=== PATIENT | male | born 1970 | race Two or more races ===

== ENCOUNTER 2025-03-15 06:53 | Inpatient (IN) ==
--- NOTE | 2025-03-15 07:00 | Emergency Department Note ---
History of Present Illness General Chief complaint: Infection Stated complaint: RT TOE PAIN, DIABETES Time Seen by Provider: 03/15/25 06:58 History of Present Illness Maximum Pain Intensity: 10 This is a 54-year-old male who presents to the emergency department via private vehicle with complaints of "right toe pain, diabetes". The patient notes that 2 days ago he noticed that the right foot, middle toe was turning black. He notes he is diabetic, on metformin. He notes the area is swollen. No increased warmth. No fevers. Current pain 10/10. Other than diabetes, patient denies any other pertinent past medical history, surgeries or allergies. The patient denies any trauma or injury. The patient denies any fevers, chills, nausea or vomiting. No history of similar. Patient denies any current antibiotic use. Home Medications Medication Instructions Recorded Confirmed Type metformin 1,000 mg tablet 1,000 mg PO BIDM 03/15/25 03/15/25 History Allergies Allergy/AdvReac Type Severity Reaction Status Date / Time No Known Allergies Allergy Verified 03/15/25 12:56 Past Med/Surg History Problem List (Updated 03/15/25 @ 15:42 by Luis Hopkins PA-C) Cellulitis of right foot (Acute) Type 2 diabetes mellitus Diabetic ulcer of toe of right foot (Acute) Sepsis (Acute) Family History Other Diabetes Social History (Updated 03/15/25 @ 09:33 by SUKI Shipman) Smoking Status: Never smoker Second Hand Exposure: No; Do You Dip or Chew Tobacco: No; Tobacco Cessation Education Requested by Patient: No Hx Alcohol Use: Yes Alcohol type: beer Alcohol Intake Frequency: 4 or More x per/Week Hx Substance Use: No Preferred Language: Estonian Communication Ability: Effective Highway Technician Required: No Beliefs That Will Affect Care: None Current Living Situation: Alone Current Living Situation Comment: From [facility] but renting house in [place] while [place]olann here Other Information That Helps Us Care for You: No Feels Safe at Home: Yes and No Is there a partner from a previous relationship who is making you feel unsafe now?: No Any Concerns about Your Family Situation: No Would You Like to Speak to Someone About Your Situation: No Safety Concerns: Feels Safe At This Time Assistive Devices: None Review of Systems A total of 10 systems reviewed and were otherwise negative Physical Exam Vital Signs Vital Signs - 24 hr 03/15/25 06:55 03/15/25 07:02 03/15/25 07:12 Temperature 36.5 C Temperature Source Temporal Artery Scan Pulse Rate 113 H 103 H Pulse Rate [Apical] 95 H Pulse Rate from SpO2 Sensor Respiratory Rate 18 20 Respiratory Effort / Characteristics Non-Labored Spontaneous Non-Labored Spontaneous Respiratory Depth Normal Normal Respiratory Pattern Regular Blood Pressure 163/99 H Blood Pressure [Left Arm] 146/92 H Blood Pressure Mean 120 Blood Pressure Mean [Left Arm] 110 Blood Pressure Position Sitting Blood Pressure Position [Left Arm] Sitting Pulse Oximetry 99 99 Oxygen Delivery Method Room Air Room Air Sepsis Recent Fever Within 48 Hours No Sepsis New/Unexplained Change in Mental Status No Sepsis Action Taken by Nursing No Action Required 03/15/25 07:39 03/15/25 08:00 03/15/25 08:03 Temperature Temperature Source Pulse Rate 96 H 91 H 91 H Pulse Rate [Apical] Pulse Rate from SpO2 Sensor 96 H 91 H Respiratory Rate 15 16 16 Respiratory Effort / Characteristics Respiratory Depth Respiratory Pattern Blood Pressure 146/92 H 140/88 140/88 Blood Pressure [Left Arm] Blood Pressure Mean 110 107 105 Blood Pressure Mean [Left Arm] Blood Pressure Position Blood Pressure Position [Left Arm] Pulse Oximetry 99 98 99 Oxygen Delivery Method Room Air Room Air Room Air Sepsis Recent Fever Within 48 Hours Sepsis New/Unexplained Change in Mental Status Sepsis Action Taken by Nursing 03/15/25 08:30 Temperature Temperature Source Pulse Rate 87 Pulse Rate [Apical] Pulse Rate from SpO2 Sensor 87 Respiratory Rate 14 Respiratory Effort / Characteristics Respiratory Depth Respiratory Pattern Blood Pressure 138/101 H Blood Pressure [Left Arm] Blood Pressure Mean 113 Blood Pressure Mean [Left Arm] Blood Pressure Position Blood Pressure Position [Left Arm] Pulse Oximetry 97 Oxygen Delivery Method Room Air Sepsis Recent Fever Within 48 Hours Sepsis New/Unexplained Change in Mental Status Sepsis Action Taken by Nursing VITAL SIGNS - Vital signs and nursing notes were reviewed. Tachycardic noted at 113, mildly hypertensive, otherwise stable and afebrile. GENERAL -54-year-old male appearing his stated age who is in no acute distress. Communicates well with provider and answers questions appropriately. SKIN -the right third toe is necrotic in nature, with a dark erythematous hue and the distal aspect shows erosion. There is erythema tracking proximally throughout the right foot and right ankle with associated edema. Other than the right third toe, no break in the integument. HEAD - NC/AT. EYES - PERRL with EOMI bilaterally. Sclera anicteric. NOSE - Midline and without cyanosis. No epistaxis or purulent drainage noted. MOUTH/OROPHARYNX - Without perioral cyanosis. NECK - No nuchal rigidity. LUNGS - CTA CARDIAC - RRR EXTREMITIES - No clubbing or peripheral cyanosis. Skin as above. The right third toe is with a macerated appearance, nail and distal aspects are missing. Small amount of drainage noted. No purulence. The right third toe region is malodorous. The right dorsalis pedis pulse is within normal limits. The right foot is warm, well-perfused. Remainder of the toes have within normal limit cap refill. +5/5 strength noted in UE/LE bilaterally. NEUROLOGIC - Cranial nerves II through XII grossly intact. Sensation intact at the right foot. Decreased sensation in the right third toe noted. PSYCH -alert, oriented and pleasant on examination. Course Administered Medications Sodium Chloride (Nss) 1,000 mls @ 80 mls/hr IV .[id number] [facility] Stop: 03/18/25 09:29 Last Admin: 03/15/25 11:53 Dose: 80 mls/hr Documented By: ESTUARDO Piperacillin Sod/Tazobactam Sod (Zosyn) 4.5 gm in 100 mls @ 25 mls/hr IV Q8H [facility]; Protocol Stop: 03/22/25 11:59 Last Admin: 03/15/25 15:27 Dose: 25 mls/hr Documented By: ESTUARDO Insulin Aspart (Insulin Aspart Per Unit Charge) 0 units SC ACHS [facility] Stop: 04/14/25 11:49 Last Admin: 03/15/25 12:54 Dose: Not Given Documented By: ESTUARDO Discontinued Medications Bupivacaine HCl (Bupivacaine 0.25% Pf 30 Ml Vial) Confirm Administered Dose 30 ml .ROUTE .STK-MED ONE Stop: 03/15/25 12:36 Last Admin: 03/15/25 13:42 Dose: 20 ml Documented By: [id number] Piperacillin Sod/Tazobactam Sod (Zosyn) 4.5 gm in 100 mls @ 200 mls/hr IV NOW ONE; Protocol Stop: 03/15/25 07:37 Last Infusion: 03/15/25 08:04 Dose: Infused Documented By: Admin: 03/15/25 07:34 Dose: 200 mls/hr Documented By: BLAKE Sodium Chloride (Nss) 1,000 mls @ 999 mls/hr IV .Q1H1M ONE Stop: 03/15/25 09:16 Last Infusion: 03/15/25 09:49 Dose: Infused Documented By: Admin: 03/15/25 08:45 Dose: 999 mls/hr Documented By: BLAKE Vancomycin HCl 1,500 mg/ (Sodium Chloride) 530 mls @ 200 mls/hr IV NOW ONE Stop: 03/15/25 11:45 Last Admin: 03/15/25 11:53 Dose: 200 mls/hr Documented By: ESTUARDO Clindamycin Phosphate (Cleocin/D5w) 900 mg in 50 mls @ 100 mls/hr IV NOW ONE Stop: 03/15/25 09:36 Last Infusion: 03/15/25 12:24 Dose: Infused Documented By: Admin: 03/15/25 11:54 Dose: 100 mls/hr Documented By: ESTUARDO Medical Decision Making Laboratory Data 03/15/25 07:14 03/15/25 07:14 Lab Results 03/15/25 03/15/25 Range/Units 07:14 07:34 WBC 17.19 H (4.8-10.8) K/ul RBC 4.90 (4.70-6.10) M/uL Hgb 15.0 (14.0-18.0) g/dl Hct 43.4 (42.0-52.0) % MCV 88.6 (80.0-100.0) fL MCH 30.6 (25.0-34.0) pg MCHC 34.6 (32.0-36.0) g/dL RDW Std Deviation 38.6 (36.4-46.3) fL RDW Coeff of Radha 12.0 (11.5-14.5) % Plt Count 461 H (130-400) K/uL MPV 9.4 (9.4-12.4) fL Immature Gran % (Auto) 0.5 % Neut % (Auto) 85.0 % Lymph % (Auto) 6.2 % Ida % (Auto) 7.5 % Eos % (Auto) 0.3 % Baso % (Auto) 0.5 % Neut # (Auto) 14.61 H (1.40-6.50) K/uL Lymph # (Auto) 1.06 L (1.20-3.40) K/uL Ida # (Auto) 1.29 H (0.11-0.59) K/uL Eos # (Auto) 0.06 (0.00-0.50) K/uL Baso # (Auto) 0.08 (0.00-0.20) K/uL Immature Gran # (Auto) 0.09 (0.01-0.20) K/uL PT 11.0 (9.0-12.0) Seconds INR 1.0 (0.9-1.1) APTT 31 (21-31) Seconds PTT Ratio 1.2 Sodium 130 L (136-145) mmol/L Potassium 4.0 (3.5-5.1) mmol/L Chloride 91 L (98-107) mmol/L Carbon Dioxide 25 (21-32) mmol/L Anion Gap 14 H (3-11) BUN 10 (6-23) mg/dl Creatinine 0.67 (0.6-1.4) mg/dl Est Cr Clr Drug Dosing 137.4 ml/min eGFR 112.34 BUN/Creatinine Ratio 14.9 (10-20) Glucose 313 H* (70-99(Fasting)) mg/dl Estimat Average Glucose 315 mg/dl Hemoglobin A1c 12.6 H (4.5-5.6) % Lactate 1.8 (0.4-2.0) mmol/L Calcium 9.0 (8.6-10.3) mg/dl Total Bilirubin 1.0 (0.2-1.0) mg/dl AST 16 (13-39) U/L ALT 18 (7-52) U/L Alkaline Phosphatase 104 (34-104) U/L Total Protein 8.7 H (6.0-8.3) gm/dl Albumin 4.1 (3.4-5.0) gm/dl Globulin 4.6 H (2.5-4.0) gm/dl Albumin/Globulin Ratio 0.9 (0.9-2) Procalcitonin 0.56 H (0-0.5) ng/ml Nasal Screen MRSA (PCR) Negative (Negative) Imaging Data Radiologist's Impression: Foot X-Ray 03/15/25 07:06 EXAM: XR foot RT min 3V routine CLINICAL HISTORY: R 3rd toe discolored, foot edema, erythema TECHNIQUE: X-ray images of the right foot were obtained in anteroposterior (AP), lateral, and oblique projections. COMPARISON: No prior studies available for comparison. FINDINGS: Soft tissue swelling surrounding the third digit around the proximal and middle phalanx with intervening small foci of air possibility of infectious process with gas forming organism/ necrotizing fasciitis should be considered. Suggest clinical correlation. Underlying third middle phalanx lucence and thinning of the lateral cortex thinning seen with suspected small focus fo cortical isruption,raising possibility of intraosseous spread of infection, clinical correlation and if needed MRI advised Bone Structure: Terminal phalanx of third digit not seen, correlate with surgical history Joint Spaces: Joint spaces are normal. No evidence of joint effusion or subluxation. Additional Findings: No signs of osteoarthritis, bone spurs, lytic or sclerotic lesions. IMPRESSION: 1. Soft tissue swelling surrounding the third digit around the proximal and middle phalanx with intervening small foci of air possibility of infectious process with gas forming organism/ necrotizing fasciitis should be considered. Suggest clinical correlation. 2. Underlying third middle phalanx lucence and thinning of the lateral cortex thinning seen with suspected small focus fo cortical isruption,raising possibility of intraosseous spread of infection, clinical correlation and if needed MRI advised 3. Terminal phalanx of third digit not seen, correlate with surgical history Disclaimer: A subtle bone abnormality or fracture may not be readily apparent on X-rays, thus clinical correlation and further imaging including follow-up CT, MRI, or follow-up X-rays are advised as needed. Electronically signed by Lobito Terry 03-15-2025 08:53 AM Foot MRI 03/15/25 08:59 MRI OF THE RIGHT FOOT WITHOUT CONTRAST CLINICAL HISTORY: Right foot infection. COMPARISON STUDY: Right foot radiographs performed earlier today. TECHNIQUE: Utilizing a 3 [place]ia magnet and dedicated coil, multiplanar, multiecho imaging of the right forefoot was performed without intravenous contrast. FINDINGS: Tarsometatarsal joints are intact. Lisfranc ligament is intact. 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 Moderate subcutaneous edema of the right midfoot and forefoot is present. There is also a wound of the right third toe with associated subcutaneous edema consistent with cellulitis. T1 and T2 hypointense signal corresponds to gas shown on radiographs. The gas extends the level of the base of the right third proximal phalanx. No fluid collection to suggest abscess is identified on unenhanced examination. There are no fractures within the right forefoot. Of note, there is nonvisualization of the right third distal phalanx, as shown on radiographs. The distal aspect of the third middle phalanx extends to the wound. There is mild increased T2 signal within the right third middle phalanx and the mid to distal aspect of the right third proximal phalanx. T1 marrow signal within these bones is only slightly diminished. No additional sites of marrow edema within the right forefoot are present. IMPRESSION: 1. Right third toe wound with associated cellulitis and soft tissue gas which extends to the level of the base of the right third proximal phalanx. This gas could be due to the open wound or a gas-forming infectious process. 2. Nonvisualization of the right third distal phalanx. In the absence of prior amputation, this is suggestive of bony destruction due to osteomyelitis. 3. Mild marrow edema within the right third distal phalanx and the mid to distal aspect of the right third proximal phalanx. The findings suggest osteitis. Although less likely, early developing osteomyelitis could appear similar. No additional sites of marrow edema within the right forefoot. ACT 112: Negative or not required by law. Electronically signed by: Gopal Hinojosa M.D. 03/15/2025 11:40 AM MDM Narrative Patient was seen and evaluated as above in room C07. Review was performed of triage nursing notes and vital signs. No previous visits for review in the EMR at time of evaluation. After obtaining a thorough history and physical examination the above work up was performed. Patient presents to us today for evaluation of an infection to the right foot, specifically the right third toe peers to be necrotic. It is malodorous. He is tachycardic on arrival. IV access with established labs are drawn. Hyperglycemia noted at 130, but corrects to 133-135 noting the hyperglycemia at 313. Leukocytosis 17.19. No anemia. Coags normal.hyponatremia 130. Anion gap high at 14. Glucose 313. Procalcitonin elevated at 0.56. Lactate normal. MRSA nasal screen is pending. Wound culture is pending. Lactate is within normal range. IV Zosyn was ordered for broad coverage. Right foot x-ray ordered as well. I reviewed the imaging. There is some soft tissue gas noted surrounding the right third digit. Although this may be secondary to the necrotic digit, the radiologist above does note, necrotizing fasciitis should be considered. At this time we are pending further workup. I will cover the patient with broad-spectrum antibiotics to include IV Zosyn, vancomycin and clindamycin at this time. IV fluids ordered, will note I do not believe he needs 30mL/kg of IV fliud. He is not hypotensive. Lactate is not elevated. Heart rate responded appropriately to the 1 L of normal saline. [id number] spoke with Dr. Hinojosa of radiology. Discussing next best imaging modality following the x-ray. Will proceed with MRI of the foot with and without contrast. MRI ordered and pending. I do believe that further evaluation and management in inpatient setting is warranted. Case discussed with the hospitalist service. Please refer to further documentation regarding his stay. GCS: 15 In the evaluation and treatment of this patient the following differential diagnoses were entertained: Necrotizing fasciitis, cellulitis, osteomyelitis, sepsis, among others Impression & Plan Cellulitis of right foot, Sepsis, Diabetic ulcer of toe of right foot Discharge Plan Visit Data Chief Complaint: Infection Stated Complaint: RT TOE PAIN, DIABETES ED Provider: Cl Howard ED Midlevel Provider: Luis Hopkins Discharge Problem: Cellulitis of right foot, Sepsis, Diabetic ulcer of toe of right foot Patient Disposition: Admitted As Inpatient Condition: Fair Discharge Instructions Interventions: ED Discharge Assessment Last Done: 03/15/25 10:44
[2025-03-15] MEDS: PIPERACILLIN/TAZOBACTAM 4.5 GM/100 ML BAG IV ONE (07:34)
[2025-03-15 07:47] LABS: Hematocrit (blood only) 43.4 % (42.0-52.0); Hemoglobin 15.0 g/dl (14.0-18.0); Immature Granulocytes # (auto) 0.09 K/uL (0.01-0.20); Immature Granulocytes % (auto) 0.5 %; Mean Corpuscular Hemoglobin 30.6 pg (25.0-34.0); Mean Corpuscular Volume 88.6 fL (80.0-100.0); Platelet Count 461 K/uL (130-400); RDW Standard Deviation 38.6 fL (36.4-46.3); Red Blood Count 4.90 M/uL (4.70-6.10); White Blood Count 17.19 K/ul (4.8-10.8)
[2025-03-15 08:13] LABS: INR 1.0 (0.9-1.1); Partial Thromboplastin Time 31 Seconds (21-31); Prothrombin Time 11.0 Seconds (9.0-12.0)
[2025-03-15 08:14] LABS: Alanine Aminotransferase 18.0 U/L (7-52); Albumin Globulin Ratio 0.9 (0.9-2); Alkaline Phosphatase 104.0 U/L (34-104); Anion Gap 14.0 (3-11); Bilirubin,Total 1.0 mg/dl (0.2-1.0); Blood Urea Nitrogen 10.0 mg/dl (6-23); Calcium 9.0 mg/dl (8.6-10.3); Carbon Dioxide 25.0 mmol/L (21-32); Chloride 91.0 mmol/L (98-107); Creatinine Clr Calc Pharmacy 137.4 ml/min; Globulin 4.6 gm/dl (2.5-4.0); Glucose 313.0 mg/dl (70-99(Fasting)); Potassium 4.0 mmol/L (3.5-5.1); Sodium 130.0 mmol/L (136-145); Total Protein 8.7 gm/dl (6.0-8.3)
--- NOTE | 2025-03-15 08:24 | History & Physical Report ---
Date of Service March 15, 2025 Assessment & Plan (1) Sepsis: (2) Diabetic ulcer of toe of right foot: (3) Cellulitis of right foot: (4) Type 2 diabetes mellitus: Plan 54 year old male with PMH significant for type 2 diabetes who presented to the ED on 03/15/2025 with an infected right third toe and is admitted for sepsis secondary to this. Sepsis Meets criteria on admission with leukocytosis 17K and tachycardia 90-115s Lactate and procalcitonin WNL Secondary to diabetic ulcer of right third toe as below Blood cultures pending Wound culture pending, nasal MRSA negative Received IV abx in the ED - continue MIVF Diabetic ulcer of right third toe Cellulitis of right foot Right third toe is eroded in appearance X-ray revealed soft tissue swelling surrounding the third digit, small foci of air possibly of infectious process and possible intraosseous spread of infection, gas forming organism/necrotizing fasciitis should be considered, terminal phalanx of third digit not seen MRI ordered Venous and arterial dopplers ordered Podiatry consulted for possible amputation NPO PRN tylenol for pain control Continue zosyn, clinda, vanco for osteomyelitis/necrotizing fasciitis coverage Type 2 diabetes A1C 12.6 BSG ACHS and SSI Glycemic pharmacy consult DVT Prophylaxis: SCDs for now Code Status: FULL CODE - As per discussion at bedside with the patient. PCP: None Disposition: admit to med surg tele Patient seen in collaboration with Dr Winslow. Please see addendum. I spent a total of 70 minutes coordinating, documenting and providing care for this patient excluding time spent in the performance of separately billed services or time spent by another provider/QHP. Admission and Anticipated Discharge Date Admission Date: 03/15/2025 History of Present Illness Chief Complaint: infected toe Primary Care Provider: NO PCP 54 year old male with PMH significant for type 2 diabetes who presented to the ED on 03/15/2025 with an infected right third toe. 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 He reports he noticed the wound and infection on his toe about three days ago. He was trying to wait until he goes back to [place] in two weeks to see a doctor for it. However, he noticed swelling and redness on the top of his foot as well as swelling and tenderness in his right calf and felt as though he needed to come to the ED instead of waiting. He reports he was diagnosed with diabetes two years ago and has been taking metformin for it. He has not been to the doctors in awhile because he travels all over the country for work. Has never seen a foot doctor. He denies pain in the toe/foot, fevers, chills, chest pain, SOB, abdominal pain, N/V/D. He has been covering his toe with toilet paper before putting on a sock and working boots. Allergies Allergy/AdvReac Type Severity Reaction Status Date / Time No Known Allergies Allergy Verified 03/15/25 12:56 Home Medications Medication Instructions Recorded Confirmed Type metformin 1,000 mg tablet 1,000 mg PO BIDM 03/15/25 03/15/25 History Past Med/Surg History Problem List Cellulitis of right foot (Acute) Type 2 diabetes mellitus Diabetic ulcer of toe of right foot (Acute) Sepsis (Acute) Family History Other Diabetes Social History (Updated 03/15/25 @ 09:33 by SUKI Shipman) Smoking Status: Never smoker Second Hand Exposure: No; Do You Dip or Chew Tobacco: No; Tobacco Cessation Education Requested by Patient: No Hx Alcohol Use: Yes Alcohol type: beer Alcohol Intake Frequency: 4 or More x per/Week Hx Substance Use: No Preferred Language: Khmer Communication Ability: Effective Supervisor Felling Bucking Required: No Beliefs That Will Affect Care: None Current Living Situation: Alone Current Living Situation Comment: From [facility] but renting house in [place] while carolann here Other Information That Helps Us Care for You: No Feels Safe at Home: Yes and No Is there a partner from a previous relationship who is making you feel unsafe now?: No Any Concerns about Your Family Situation: No Would You Like to Speak to Someone About Your Situation: No Safety Concerns: Feels Safe At This Time Assistive Devices: None Review of Systems Review of Systems: All systems reviewed & are unremarkable except as noted in HPI & below Physical Exam Physical Exam: General/Psych: WD/WN, sitting up in bed, NAD, conversing easily Head: normocephalic, atraumatic Eyes: normal inspection, PERRL, conjunctivae pink ENT: external ear and nose normal, oropharynx normal Neck: normal visual inspection, trachea midline Respiratory: normal respiratory effort, lungs clear to auscultation, no wheeze/rales/rhonchi, no accessory muscle use Cardiovascular: regular rate and rhythm, no murmur/rub/gallop, no JVD Extremities: no cyanosis or clubbing, normal peripheral pulses, no LLE edema, non-pitting RLE edema present, +right calf tenderness, sensation intact to right foot/toes Abdomen/GI: normal bowel sounds, soft, nontender Neurologic/MSK: A+Ox3, motor strength 5/5, moves all extremities Skin: no rashes, normal color, warm and dry, right third toe eroded without nail or distal phalange, malodorous, erythema at base of toe extending onto top of right foot Results & Data Results & Data Vital Signs (Past 12 Hours) Vital Signs Temp Pulse Pulse Resp BP BP Pulse Ox 03/15/25 08:00 91 H 16 140/88 98 03/15/25 07:39 96 H 15 146/92 H 99 03/15/25 07:12 103 H 03/15/25 07:02 95 H 20 146/92 H 99 03/15/25 06:55 36.5 C 113 H 18 163/99 H 99 O2 Del Method 03/15/25 08:00 Room Air 03/15/25 07:39 Room Air 03/15/25 07:12 03/15/25 07:02 Room Air 03/15/25 06:55 Room Air Laboratory Results Short CBC 03/15/25 Range/Units 07:14 WBC 17.19 H (4.8-10.8) K/ul Hgb 15.0 (14.0-18.0) g/dl Hct 43.4 (42.0-52.0) % Plt Count 461 H (130-400) K/uL BMP 03/15/25 07:14 Sodium 130 L Potassium 4.0 Chloride 91 L Carbon Dioxide 25 BUN 10 Creatinine 0.67 Glucose 313 H* Calcium 9.0 Liver Function 03/15/25 Range/Units 07:14 Total Bilirubin 1.0 (0.2-1.0) mg/dl AST 16 (13-39) U/L ALT 18 (7-52) U/L Alkaline Phosphatase 104 (34-104) U/L Albumin 4.1 (3.4-5.0) gm/dl I have independently reviewed and interpreted patient's admitting labs including CBC, CMP, PTT, PT/INR, procalcitonin. Diagnostic Findings Foot X-Ray 03/15/25 07:06 EXAM: XR foot RT min 3V routine CLINICAL HISTORY: R 3rd toe discolored, foot edema, erythema TECHNIQUE: X-ray images of the right foot were obtained in anteroposterior (AP), lateral, and oblique projections. COMPARISON: No prior studies available for comparison. FINDINGS: Soft tissue swelling surrounding the third digit around the proximal and middle phalanx with intervening small foci of air possibility of infectious process with gas forming organism/ necrotizing fasciitis should be considered. Suggest clinical correlation. Underlying third middle phalanx lucence and thinning of the lateral cortex thinning seen with suspected small focus fo cortical isruption,raising possibility of intraosseous spread of infection, clinical correlation and if needed MRI advised Bone Structure: Terminal phalanx of third digit not seen, correlate with surgical history Joint Spaces: Joint spaces are normal. No evidence of joint effusion or subluxation. Additional Findings: No signs of osteoarthritis, bone spurs, lytic or sclerotic lesions. IMPRESSION: 1. Soft tissue swelling surrounding the third digit around the proximal and middle phalanx with intervening small foci of air possibility of infectious process with gas forming organism/ necrotizing fasciitis should be considered. Suggest clinical correlation. 2. Underlying third middle phalanx lucence and thinning of the lateral cortex thinning seen with suspected small focus fo cortical isruption,raising possibility of intraosseous spread of infection, clinical correlation and if needed MRI advised 3. Terminal phalanx of third digit not seen, correlate with surgical history Disclaimer: A subtle bone abnormality or fracture may not be readily apparent on X-rays, thus clinical correlation and further imaging including follow-up CT, MRI, or follow-up X-rays are advised as needed. Electronically signed by Lobito Terry 03-15-2025 08:53 AM Code Status & VTE Plan Code Status Full Code Supervising Physician Co-Signing Physician Notes Pt seen and examined by me, care coordinated w/ M. SUKI Browning pls refer to her note above for further detail. Pt is a 54 yo M with type 2 diabetes (uncontrolled, w/ elevated A1c of 12.6%) currently on metformin who presents with an infected / diabetic right third toe. 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 He reports he noticed the wound and infection on his toe about three days ago. He was trying to wait until he goes back to [place] in two weeks to see a doctor for it. Pt is awake, alert, oriented, answers appropriately, BMI of ~23. Afebrile, initially tachycardic, and with elevated WBC of 17K. Lungs CTAB. Abdomen soft, nontender. LLE - no edema, erythema or pain noted. RLE - 3rd toe infected, malodorous, black/necrotic appearance with erythema of dorsum of the foot, edema of the foot, ankle, and right calf noted. + tenderness to palpation of R calf. X-ray of the R foot obtained in ED, concern for osteo given physical exam findings and imaging. Pt was started treatment for sepsis in ED. Pt was given IVF and zosyn. Consulted podiatry and pt will be taken to OR today. Cont. NPO status for now, cont. IVF and IV abx. Glycemic pharmacy consult. Will need ID consult, follow cultures. MD Nayla
[2025-03-15] MEDS: SODIUM CHLORIDE 0.9% 1,000 ML IV ONE (08:45)
--- NOTE | 2025-03-15 08:54 | XRay Report ---
EXAM: XR foot RT min 3V routine CLINICAL HISTORY: R 3rd toe discolored, foot edema, erythema TECHNIQUE: X-ray images of the right foot were obtained in anteroposterior (AP), lateral, and oblique projections. COMPARISON: No prior studies available for comparison. FINDINGS: Soft tissue swelling surrounding the third digit around the proximal and middle phalanx with intervening small foci of air possibility of infectious process with gas forming organism/ necrotizing fasciitis should be considered. Suggest clinical correlation. Underlying third middle phalanx lucence and thinning of the lateral cortex thinning seen with suspected small focus fo cortical isruption,raising possibility of intraosseous spread of infection, clinical correlation and if needed MRI advised Bone Structure: Terminal phalanx of third digit not seen, correlate with surgical history Joint Spaces: Joint spaces are normal. No evidence of joint effusion or subluxation. Additional Findings: No signs of osteoarthritis, bone spurs, lytic or sclerotic lesions. IMPRESSION: 1. Soft tissue swelling surrounding the third digit around the proximal and middle phalanx with intervening small foci of air possibility of infectious process with gas forming organism/ necrotizing fasciitis should be considered. Suggest clinical correlation. 2. Underlying third middle phalanx lucence and thinning of the lateral cortex thinning seen with suspected small focus fo cortical isruption,raising possibility of intraosseous spread of infection, clinical correlation and if needed MRI advised 3. Terminal phalanx of third digit not seen, correlate with surgical history Disclaimer: A subtle bone abnormality or fracture may not be readily apparent on X-rays, thus clinical correlation and further imaging including follow-up CT, MRI, or follow-up X-rays are advised as needed. Electronically signed by Lobito Terry 03-15-2025 08:53 AM
[2025-03-15] MEDS ORDERED: VANCOMYCIN CONSULT ACTIVE PRN (09:07)
[2025-03-15 09:56] LABS: Hemoglobin A1C 12.6 % (4.5-5.6)
--- NOTE | 2025-03-15 10:29 | Ultrasound Report ---
RIGHT LOWER EXTREMITY VENOUS DOPPLER CLINICAL HISTORY: Unilateral calf tenderness. COMPARISON STUDY: No previous studies for comparison. TECHNIQUE: Sonography of the deep venous system of the right lower extremity was performed. Compress ion and augmentation were evaluated. FINDINGS: The right common femoral, superficial femoral and popliteal veins were compressible. Augme ntation was normal. Flow was shown within the deep calf vessels. IMPRESSION: No evidence of deep venous thrombus within the right lower extremity. ACT 112: Negative or not required by law. Electronically signed by: Gopal Hinojosa M.D. 03/15/2025 10:28 AM
--- NOTE | 2025-03-15 10:50 | Ultrasound Report ---
US arterial duplex LE RT HISTORY: 54 years-old Male diabetic toe wound COMPARISON: None TECHNIQUE: Multiple real-time sonographic images of the right lower extremity arterial structures wer e obtained assessing grayscale appearance, color and spectral flow FINDINGS: Triphasic waveforms are noted involving the majority of the right lower extremity arteries. Elevated peak systolic velocities within a segment of the dorsalis pedis artery are noted measuring up to 303 cm/s. No arterial occlusion. Subcutaneous edema of the lower leg and ankle. Physiologic-appearing ing uinal chain lymph nodes are present. IMPRESSION: 1. Triphasic waveforms are noted throughout without evidence of arterial occlusion. 2. Elevated peak systolic velocities in the dorsalis pedis artery may be secondary to vessel tortuosi ty versus stenosis. ACT 112: Negative or not required by law. The above report was generated using voice recognition software. It may contain grammatical, syntax o r spelling errors. Electronically signed by: Julio C Ribera M.D. 03/15/2025 10:47 AM
--- NOTE | 2025-03-15 11:42 | Magnetic Resonance Report ---
MRI OF THE RIGHT FOOT WITHOUT CONTRAST CLINICAL HISTORY: Right foot infection. COMPARISON STUDY: Right foot radiographs performed earlier today. TECHNIQUE: Utilizing a 3 Kenia magnet and dedicated coil, multiplanar, multiecho imaging of the right forefoot was performed without intravenous contrast. FINDINGS: Tarsometatarsal joints are intact. Lisfranc ligament is intact. There is moderate osteoarth ritis of the right first metatarsophalangeal joint. Moderate subcutaneous edema of the right midfoot and forefoot is present. There is also a wound of the right third toe with associated subcutaneous ed bernardino consistent with cellulitis. T1 and T2 hypointense signal corresponds to gas shown on radiographs. The gas extends the level of the base of the right third proximal phalanx. No fluid collection to mcpherson ggest abscess is identified on unenhanced examination. There are no fractures within the right forefo ot. Of note, there is nonvisualization of the right third distal phalanx, as shown on radiographs. Th e distal aspect of the third middle phalanx extends to the wound. There is mild increased T2 signal w ithin the right third middle phalanx and the mid to distal aspect of the right third proximal phalanx . T1 marrow signal within these bones is only slightly diminished. No additional sites of marrow juan a within the right forefoot are present. IMPRESSION: 1. Right third toe wound with associated cellulitis and soft tissue gas which extends to the level of the base of the right third proximal phalanx. This gas could be due to the open wound or a gas-formi ng infectious process. 2. Nonvisualization of the right third distal phalanx. In the absence of prior amputation, this is mcpherson ggestive of bony destruction due to osteomyelitis. 3. Mild marrow edema within the right third distal phalanx and the mid to distal aspect of the right third proximal phalanx. The findings suggest osteitis. Although less likely, early developing osteomy elitis could appear similar. No additional sites of marrow edema within the right forefoot. ACT 112: Negative or not required by law. Electronically signed by: Gopal Hinojosa M.D. 03/15/2025 11:40 AM
[2025-03-15] MEDS ORDERED: GLUCOSE 10 TAB/TUBE PO PRN (11:50)
[2025-03-15] MEDS ORDERED: PHARMACY GLYCEMIC MGMT CONSULT PRN (11:50)
[2025-03-15] MEDS ORDERED: CARBOHYDRATES FOR HYPOGLYCEMIA PO PRN (11:50)
[2025-03-15] MEDS ORDERED: GLUCOSE 40% GEL 15 GM TUBE PO PRN (11:50)
[2025-03-15] MEDS ORDERED: DEXTROSE 50% 50 ML SYRINGE IV PRN (11:50)
[2025-03-15] MEDS ORDERED: ONDANSETRON INJ 2 MG/ML 2 ML VIAL IV PRN ×2 (11:50→13:07)
[2025-03-15] MEDS ORDERED: GLUCAGON FOR INJ 1 MG VIAL SQ PRN (11:50)
[2025-03-15] MEDS: VANCOMYCIN HCL 1,500 MG in SODIUM CHLORIDE 0.9% 500 ML IV ONE (11:53)
[2025-03-15] MEDS: SODIUM CHLORIDE 0.9% 1,000 ML IV SCH (11:53)
[2025-03-15] MEDS: CLINDAMYCIN/D5W 900 MG/50 ML BAG IV ONE (11:54)
--- NOTE | 2025-03-15 12:12 | Anesthesiology Consultation ---
Date of Service March 15, 2025 Assessment & Plan Chart Review Chart Review: Acceptable Risk for Surgery, Patient NOT seen in Pre Admission Testing and order entry administrator initiated Consults Requested none History Surgery Operation Date: 03/15/25 07:00 Proposed Procedures p Right Foot Incision and Drainage Infected Bone - Maryannsaige Weaver, VELVET Height/Weight Height: 5 ft 11 in Weight: 77.3 kg Allergies Allergy/AdvReac Type Severity Reaction Status Date / Time No Known Allergies Allergy Unverified 03/15/25 08:42 Medications Home Medications Medication Instructions Recorded Confirmed Last Taken metformin 1,000 mg tablet 1,000 mg PO BIDM 03/15/25 03/15/25 03/15/25 Active Medications Generic Name Dose Route Start Last Admin Trade Name Freq PRN Reason Stop Dose Admin Sodium Chloride 1,000 mls @ 80 mls/hr 03/15/25 09:30 03/15/25 11:53 Nss IV 03/18/25 09:29 80 mls/hr .[id number] KEVIN Administration Past Family History Family History Other Diabetes Social History Smoking Status: Never smoker Hx Alcohol Use: Yes Alcohol type: beer Hx Substance Use: No Physical Exam Vital Signs Last Vital Signs Temp 36.4 C L 03/15/25 11:44 Pulse 86 03/15/25 11:44 Resp 18 03/15/25 11:44 BP 157/96 H 03/15/25 11:44 Pulse Ox 100 03/15/25 11:44 O2 Del Method Room Air 03/15/25 11:44 Testing Laboratory Results 03/15/25 07:14 03/15/25 07:14 PT 11.0 Seconds (9.0-12.0) 03/15/25 07:14 INR 1.0 (0.9-1.1) 03/15/25 07:14 APTT 31 Seconds (21-31) 03/15/25 07:14 Hemoglobin A1c 12.6 % (4.5-5.6) H 03/15/25 07:14 03/15/25 07:10 Gram Stain - Final Toe,Right Third 03/15/25 11:35 POC Glucose 220 H
[2025-03-15] MEDS ORDERED: MIDAZOLAM HCL 1 MG/ML 2ML VIAL ONE (12:13)
[2025-03-15] MEDS ORDERED: PROPOFOL IV EMULSION 10 MG/ML 20 ML VIAL IV ONE ×2 (12:13→12:18)
[2025-03-15] MEDS ORDERED: LIDOCAINE 2% 2 ML VIAL/AMP(20MG/ML) INFIL ONE (12:13)
--- NOTE | 2025-03-15 12:25 | Podiatry Consultation ---
Date of Consultation March 15, 2025 Assessment & Plan (1) Sepsis: (2) Diabetic ulcer of toe of right foot: (3) Cellulitis of right foot: (4) Type 2 diabetes mellitus: Plan A: 54 year old male with PMH significant for type 2 diabetes who presented to the ED on 03/15/2025 with an infected right third toe and is admitted for sepsis secondary to this. P: Plan for right foot incision and drainage of infected bone with possible partial 3rd ray resection with cultures on 03/15/25. Patient is NPO. Continue abx per medicine. Dry dressing to right foot. History of Present Illness Attending Physician: Edward Winslow MD History of Present Illness Patient seen at bedside with nurse. Reports 3 day duration of right 3rd toe diabetic wound. Nurse reports his blood sugars are elevated 220s. Denies any home treatment for the wound. States toe looks black and he has increasing redness and swelling extending up his foot/ankle. Reports not feeling well with nausea, fever, and chills. Patient went to the emergency department on 03/15/25 and was admitted for this right 3rd toe infection. Patient denies any previous surgery of the right 3rd toe that could explain the absence of the distal phalanx of the right 3rd toe bone. Discussed the xrays findings most likely represent osteomyelitis infection. Patient would like to proceed with surgery to address his right 3rd toe infection. Allergies Allergy/AdvReac Type Severity Reaction Status Date / Time No Known Allergies Allergy Unverified 03/15/25 08:42 Home Medications Medication Instructions Recorded Confirmed Type metformin 1,000 mg tablet 1,000 mg PO BIDM 03/15/25 03/15/25 History Patient History Family History Other Diabetes Social History (Updated 03/15/25 @ 09:33 by SUKI Shipman) Smoking Status: Never smoker Second Hand Exposure: No; Do You Dip or Chew Tobacco: No; Hx Alcohol Use: Yes Alcohol type: beer Alcohol Intake Frequency: 4 or More x per/Week Hx Substance Use: No Preferred Language: Chinese Communication Ability: Effective Garment Folder Required: No Beliefs That Will Affect Care: None Current Living Situation: Alone Current Living Situation Comment: From [facility] but renting house in [place] while [place]olann here Feels Safe at Home: Yes and No Is there a partner from a previous relationship who is making you feel unsafe now?: No Any Concerns about Your Family Situation: No Would You Like to Speak to Someone About Your Situation: No Assistive Devices: None Review of Systems Review of Systems: All systems reviewed & are unremarkable except as noted in HPI & below Constitutional: + fever, + chills and + fatigue Eyes: no problem reported Ear, Nose, Mouth, Throat: no sore throat and no pain with swallowing Respiratory: no problem reported Cardiovascular: no problem reported Gastrointestinal: no problem reported Genitourinary: no problem reported Musculoskeletal: + swelling and + problem reported Integumentary: + wounds, + erythema, + skin swelling an d + change in skin color Neurologic: + loss of sensation and + numbness Psychiatric: no problem reported Endocrine: no problem reported Physical Exam Constitutional: WD/WN, vitals as above well developed Eyes: PERRL, conjunctivae normal, anicteric sclerae ENMT: external ear and nose normal, oropharynx normal Neck: trachea midline, no thyromegaly Respiratory: normal respiratory effort, lungs clear to auscultation Cardiovascular: RRR, no murmur, no edema Vessels: posterior tibial pulses present (left, right posterior tibial pulses diminished) and dorsalis pedis pulses present Gastrointestinal (Abdomen): normal bowel sounds, soft, nontender, no hepatosplenomegaly Skin: + ulcer, + wound and + erythema Right 3rd toe ulcer with skin necrosis. probes to bone. Neurologic: PERRL, EOMI, accommodation nl, no face palsy, no dysarthria Motor/Sensory: + sensory deficit Psychiatric: A+Ox3, euthymic affect Orientation: alert and oriented x 3 Lymphatic: no cervical or axillary lymphadenopathy Results & Data Vital Signs (Past 12 Hours) Vital Signs Temp Pulse Pulse Resp BP BP Pulse Ox 03/15/25 11:44 36.4 C L 86 18 157/96 H 100 03/15/25 08:30 87 14 138/101 H 97 03/15/25 08:03 91 H 16 140/88 99 03/15/25 08:00 91 H 16 140/88 98 03/15/25 07:39 96 H 15 146/92 H 99 03/15/25 07:12 103 H 03/15/25 07:02 95 H 20 146/92 H 99 03/15/25 06:55 36.5 C 113 H 18 163/99 H 99 O2 Del Method 03/15/25 11:44 Room Air 03/15/25 08:30 Room Air 03/15/25 08:03 Room Air 03/15/25 08:00 Room Air 03/15/25 07:39 Room Air 03/15/25 07:12 03/15/25 07:02 Room Air 03/15/25 06:55 Room Air Diagnostic Findings review of imaging Right third toe wound with associated cellulitis and soft tissue gas which extends to the level of the base of the right third proximal phalanx. This gas could be due to the open wound or a gas-forming infectious process. Nonvisualization of the right third distal phalanx. In the absence of prior amputation, this is suggestive of bony destruction due to osteomyelitis.
[2025-03-15] MEDS: INSULIN ASPART PER UNIT CHARGE SC SCH (12:54)
[2025-03-15] MEDS ORDERED: ATROPINE SULFATE 0.1 MG/ML 10ML SYR IV PRN (13:07)
[2025-03-15] MEDS ORDERED: ONDANSETRON INJ 2 MG/ML 2 ML VIAL ONE (13:18)
[2025-03-15] MEDS: BUPIVACAINE 0.25% PF 30 ML VIAL ONE (13:42)
--- NOTE | 2025-03-15 14:10 | Post Operative Brief Note ---
Immediate Post Op Note Date of Surgery March 15, 2025 Pre & Post Diagnosis Operation Date: 03/15/25 07:00 Pre-Op Diagnosis: Diabetic ulcer of toe of right foot Post-Op Diagnosis: Diabetic ulcer of toe of right foot, osteomyelitis right Third toe I identified the patient and participated in the time-out.: Yes Procedure Operation Date: 03/15/25 07:00 Actual Procedures p Right Foot Incision and Drainage(Right) - Maryann Weaver DPM Surgeon Maryann Weaver DPM [employer] Residential Service Technician None Estimated Blood Loss 20 Findings Consistent with Post-Op Diagnosis Specimens Right third toe pathology permanent Right third metatarsal head proximal margin Swab culture right foot surgical wound Soft tissue culture right foot wound Anesthesia Type MAC Complications none None Disposition Accompanied Patient To Recovery: Yes
--- NOTE | 2025-03-15 14:25 | Anesthesiology Progress Note ---
Date of Service March 15, 2025 Anesthesia Post Procedure Vital Signs Vital Signs: Temp Pulse Pulse Pulse Resp BP BP 03/15/25 14:15 73 17 126/78 03/15/25 14:06 36.5 C 71 21 104/70 03/15/25 12:45 36.6 C 82 20 159/98 H 03/15/25 12:07 36.4 C L 86 18 157/96 H 03/15/25 11:44 36.4 C L 86 18 157/96 H 03/15/25 08:30 87 14 138/101 H 03/15/25 08:03 91 H 16 140/88 03/15/25 08:00 91 H 16 140/88 03/15/25 07:39 96 H 15 146/92 H 03/15/25 07:12 103 H 03/15/25 07:02 95 H 20 146/92 H 03/15/25 06:55 36.5 C 113 H 18 163/99 H Pulse Ox O2 Del Method 03/15/25 14:15 99 Room Air 03/15/25 14:06 97 Room Air 03/15/25 12:45 100 Room Air 03/15/25 12:07 100 Room Air 03/15/25 11:44 100 Room Air 03/15/25 08:30 97 Room Air 03/15/25 08:03 99 Room Air 03/15/25 08:00 98 Room Air 03/15/25 07:39 99 Room Air 03/15/25 07:12 03/15/25 07:02 99 Room Air 03/15/25 06:55 99 Room Air Pain Intensity Right 3rd Digit Foot: Pain Intensity: 6 Transfer of Care Handoff Completed per policy Notes Mental Status: alert / awake / arousable Patient Amnestic to Procedure: Yes Nausea / Vomiting: adequately controlled Pain: adequately controlled Airway Patency, RR, SpO2: stable & adequate BP & HR: stable & adequate Hydration State: stable & adequate Anesthetic Complications: no major complications apparent and Pt Satisfied with anesthetic care
--- NOTE | 2025-03-15 14:32 | Pharmacy Report ---
Pharmacy PK ABX Note - Date of Service March 15, 2025 - Assessment and Plan Assessment 54 year old M receiving vancomycin/clindamycin/Zosyn for treatment of diabetic foot infection r/o necrotizing fasciitis and osteomyelitis. Went to OR today for right foot I&D. Pertinent microbiologic data includes: blood cultures pending, 3rd right toe surface cultures pending, right foot OR cultures pending. Day # 1 of antimicrobial therapy. Plan Vancomycin * Loading dose: 1500 mg IV x 1 * Maintenance dose: 1000 mg IV every 8 hours * Regimen is predicted to achieve target AUC/NATALIE of 400-600 mg/L.hr * Trough level ordered for: 03/16/25 @0930 Pharmacy will continue to follow and will adjust dose/frequency as necessary. Thank you. Pharmacy has transitioned to AUC monitoring for vancomycin. AUC/NATALIE is the preferred PK/PD target and is associated with decreased risk of nephrotoxicity compared to traditional trough targets.
--- NOTE | 2025-03-15 15:11 | Pharmacy Report ---
Pharmacy Glycemic Short Note 2 - Date of Service March 15, 2025 - Glycemic Short BSG Results (Last 24 hours): 03/15/25 03/15/25 03/15/25 07:14 11:35 14:08 Glucose 313 H* POC Glucose 220 H 205 H OUTPATIENT ANTIDIABETIC REGIMEN: * metformin 1000mg PO BID * HbA1c 12.6% (03/15/25) ASSESSMENT: * Dave is a 54 year old male admitted with sepsis/diabetic foot ulcer and history of type 2 diabetes mellitus. Pharmacy has been consulted to [facility] with glycemic management while inpatient. * BSGs upon admission significantly elevated with initiate NovoLog at a weight based stress of 2 and a Lantus scale up to a weight based stress of 2 based on BSGs * He is receiving clindamycin/Zosyn/vancomycin for his infection. S/p I&D today. PLAN FOR INPATIENT GLYCEMIC CONTROL: * Hold outpatient oral diabetes medications * Basal insulin * Lantus 0-20 units SQ BID (see eMAR for additional details) * Bolus insulin * NovoLog per scale ACHS or Q6hrs while NPO * Goal Range: Low 140 mg/dL - High 180 mg/dL * Correction Factor: 30 mg/dL/unit * Nutritional / Prandial insulin per carb ratio of 1 unit per 10 grams CHO consumed
[2025-03-15] MEDS: PIPERACILLIN/TAZOBACTAM 4.5 GM/100 ML BAG IV SCH (15:27)
--- NOTE | 2025-03-15 15:33 | Operative Report ---
Post Operative Report Pre & Post Diagnosis Operation Date: 03/15/25 07:00 Pre-Op Diagnosis: Diabetic ulcer of toe of right foot Post-Op Diagnosis: Diabetic ulcer of toe of right foot I identified the patient and participated in the time-out.: Yes Procedure Operation Date: 03/15/25 07:00 Actual Procedures p Right Foot Incision and Drainage(Right) - Maryann Weaver DPM Surgeon Maryann Weaver DPM Dining Car Waiter/Waitress none Estimated Blood Loss 20 Findings Consistent with Post-Op Diagnosis Specimens 1. right 3rd toe pathology. 2. right 3rd metatarsal head proximal margin pathology. 3. swab culture right foot. 4. right foot soft tissue cultures Anesthesia Type MAC Complications none Disposition Accompanied Patient To Recovery: Yes Indications Patient is a 54-year old male with past medical history significant for diabetes with a right third toe infected ulceration with underlying osteomyelitis. He reported to the emergency department this morning with worsening toe infection and right foot redness and swelling. Reports not feeling over the past few days with nausea, chills, and fever. He was admitted and started on oral antibiotics. He underwent x-rays and MRI imaging demonstrating absence of third distal phala nx bone most likely destruction from osteomyelitis and findings indicating osteomyelitis of middle and proximal phalanges of right 3rd toe. Gas noted within the right 3rd toe soft tissue swelling. Patient denied any previous surgery of his right third toe. Discussed with the patient the recommended treatment plan of a right foot incision and drainage of infected bone with cultures. Discussed the possible risks including but not limited to infection, swelling, transfer lesions, wound dehiscence, blood clots, deep venous thrombosis, pulmonary embolism, chronic pain, nerve injury, numbness, loss of toe, loss of limb, loss of life, failure of procedure and need for additional procedures. Discussed risks, benefits, and alternatives to surgery. Patient states he understands and wants to proceed. Description of Procedure The patient was brought back into the operating room and placed on the OR table in the supine position. A time was performed in order to correctly identify the patient, planned procedure, and correct side of limb. MAC was performed per the anesthesiologist. 20 cc of 0.5% marcaine plain was administered as a forefoot block under aseptic technique. A well padded pneumatic ankle tourniquet was applied to the right ankle. The right lower extremity was scrubbed, prepped, and draped in the usual aseptic manner. The tourniquet was not inflated. Attention was then directed to the right third toe at the third metatarsophalangeal joint (MTPJ) where two semi-elliptical incisions were made with a 15 blade. The incision was deepened down to the level the MTPJ, where the third toe was disarticulated at the MTPJ, and passed from the operative field to the back table. The right third toe was sent for pathology. Swab culture was obtained of the right foot surgical wound at the level of the MTPJ. Long flexor and extensor tendons and plantar plate tissue were sharply excised and passed from the operative field. Copious amount of saline was utilized to irrigate the surgical wound. No purulent drainage was identified. Nonviable tissue was s harply excised and passed from the operative field and sent as right foot soft tissue cultures. The head of the third metatarsal head appeared healthy and cartilage was intact and white in color. However, due to the severe toe infection, it was decided to perform a partial distal ray resection with a sagittal saw to remove the third metatarsal head. The third metatarsal head was sent for pathology as proximal margin. In addition, with the removal of the third metatarsal head, the surgical incision could be closed primarily without tension. Copious amount of saline was utilized to irrigate the surgical wound. No proximal purulence was identified. Small bleeders were cauterized with a bovie. Deep closure was performed with 3-0 monocryl. The skin was coapted with 3-0 nylon in interrupted horizontal fashion and retention type suture fashion. The incision was dressed with betadine soaked adapatic, 4x4 gauze, ABD pad, kerlix, and Jason bandage. The patient tolerated the procedure and anesthesia well with all vital signs stable and vascular status intact to the right foot. The patient was transferred to recovery for brief post operative monitoring and will be transferred back to the floor for continued medical management. Pending pathology proximal margin findings will guide antibiotic treatment. If margins are clear, I recommend the patient to be discharged on 2 weeks of oral antibio tics for any residual soft tissue infection. Podiatry will follow the patient while admitted and to follow up with in our clinic 1 week following discharge for continued post operative care. I attest to the content of the Intraoperative Record and any orders documented therein. Any exceptions are noted below.
[2025-03-15] MEDS: CLINDAMYCIN/D5W 900 MG/50 ML BAG IV SCH (18:09)
[2025-03-15] MEDS: VANCOMYCIN HCL 1,000 MG/270 ML BAG IV SCH (20:29)
[2025-03-15] MEDS: ACETAMINOPHEN 325 MG TAB PO PRN (20:29)
[2025-03-15] MEDS: LANTUS PER UNIT CHARGE SC SCH (21:37)
[2025-03-16 07:23] LABS: Hematocrit (blood only) 37.6 % (42.0-52.0); Hemoglobin 13.3 g/dl (14.0-18.0); Immature Granulocytes # (auto) 0.04 K/uL (0.01-0.20); Immature Granulocytes % (auto) 0.4 %; Mean Corpuscular Hemoglobin 31.4 pg (25.0-34.0); Mean Corpuscular Volume 88.9 fL (80.0-100.0); Platelet Count 442 K/uL (130-400); RDW Standard Deviation 37.5 fL (36.4-46.3); Red Blood Count 4.23 M/uL (4.70-6.10); White Blood Count 10.94 K/ul (4.8-10.8)
[2025-03-16 07:35] LABS: Anion Gap 7.0 (3-11); Blood Urea Nitrogen 8.0 mg/dl (6-23); Calcium 7.9 mg/dl (8.6-10.3); Carbon Dioxide 29.0 mmol/L (21-32); Chloride 101.0 mmol/L (98-107); Creatinine Clr Calc Pharmacy 180.5 ml/min; Glucose 165.0 mg/dl (70-99(Fasting)); Potassium 3.8 mmol/L (3.5-5.1); Sodium 137.0 mmol/L (136-145)
--- NOTE | 2025-03-16 08:16 | Pharmacy Report ---
Pharmacy Glycemic Short Note 2 - Date of Service March 16, 2025 - Glycemic Short BSG Results (Last 24 hours): 03/15/25 03/15/25 03/15/25 07:14 11:35 14:08 Glucose 313 H* POC Glucose 220 H 205 H 03/15/25 03/15/25 03/15/25 16:42 20:29 20:32 Glucose POC Glucose 189 H 324 H* 289 H 03/16/25 03/16/25 05:26 07:58 Glucose 165 H POC Glucose 177 H OUTPATIENT ANTIDIABETIC REGIMEN: * metformin 1000mg PO BID * HbA1c 12.6% (03/15/25) ASSESSMENT: 03/16: * Dave received 30 units of insulin yesterday (20 were basal) * Fasting BSG this AM improved. Will continue basal scale at this time up to a weight based stress of 2 until needs are better known. * Carbohydrate ratio and goal range tightened as BSGs increased throughout the day. 03/15: * Dave is a 54 year old male admitted with sepsis/diabetic foot ulcer and history of type 2 diabetes mellitus. Pharmacy has been consulted to [facility] with glycemic management while inpatient. * BSGs upon admission significantly elevated with initiate NovoLog at a weight based stress of 2 and a Lantus scale up to a weight based stress of 2 based on BSGs * He is receiving clindamycin/Zosyn/vancomycin for his infection. S/p I&D today. PLAN FOR INPATIENT GLYCEMIC CONTROL: * Hold outpatient oral diabetes medications * Basal insulin * Lantus 0-20 units SQ BID (see eMAR for additional details) * Bolus insulin * NovoLog per scale ACHS or Q6hrs while NPO * Goal Range: Low 140 mg/dL - High 180 mg/dL * Correction Factor: 30 mg/dL/unit * Nutritional / Prandial insulin per carb ratio of 1 unit per 8 grams CHO consumed
[2025-03-16] MEDS: VANCOMYCIN LEVEL ONE (10:51)
--- NOTE | 2025-03-16 10:54 | Infectious Disease Consult ---
Date of Service March 16, 2025 Telehealth Information I performed this visit using a real-time telehealth connection between my location and the patients location ([facility]). After connecting through interactive tele-video, patient was identified by name and date of and/or wristband check.Patient (or authorized healthcare telephone claims representative) was informed that this was a telemedicine visit and it was being conducted confidentially over secure lines. My office door was closed and no one else was present in the room with me.Patient (or authorized healthcare telephone claims representative) provided consent to proceed with the visit, expressed an understanding of privacy and security of the telemedicine visit, and gave permission to have a hospital telephone claims representative in the room in order to assist with the visit and to conduct portions of the visit, as needed. I informed the patient (or authorized healthcare telephone claims representative) that I reviewed their record and presented the opportunity for them to ask any questions regarding the visit today. The patient agreed to participate. Assessment & Plan (1) Cellulitis of right foot: (2) Osteomyelitis of right foot: Plan: Assessment: Cellulitis of R foot w/ OM of R 3rd prox phalax DM2 S/p I&D of the R foot w/ partial distal ray resection removing the 3rd metatarsal head (03/15/25) Recommendations: - Stop clindamycin - Hold vancomycin iv - Continue zosyn at current dose - F/u OR cultures - Anticipate 2 weeks of abx therapy: anticipate to transition to oral abx if susceptibility allows such transition. - Final rec to follow, depending on the culture result OR note clearly states that the head of the third metatarsal head appeared healthy and cartilage was intact and white in color, indicating no MT bone involvement. As infected bone was removed past a clear margin, I recommend total 2 weeks of abx therapy from 03/16 to 03/29/25 During this patient encounter, one or more of the following was provided in addition to my in person visit: disease transmission risk assessment and mitigation; public health investigation, analysis, and testing; and/or complex antimicrobial therapy counseling and treatment. I spent a total of 81 minutes coordinating, documenting, and providing care for this patient excluding time spent in the performance of separately billed services or time spent by another provider/QHP. History of Present Illness History of Present Illness This is a 54 y/o male (Dave) w/ hx of DM2 (currently on metformin) w/ diabetic R foot ulcer, who presented to ED on 03/15/25 for infected R 3rd toe: he noticed the wound about 3 days ago w/ swelling and redness spreading from R 3rd toe to midfoot. No fever but physical exam revealing cellulitic changes on R foot. MRI showed soft tissue gas which extends to the level of the base of the right third proximal phalanx. The patient had I&D of the R foot w/ partial distal ray resection removing the 3rd metatarsal head (03/15/25: the head of the third metatarsal head appeared healthy and cartilage was intact and white in color. However, due to the severe toe infection, it was decided to perform a partial distal ray resection with a sagittal saw to remove the third metatarsal head.) He reports 3 out of 10 pain at the surgical site, but much better than before. No f/c, n/v, abd pain, diarrhea, coughing, sob, cp or urinary symptoms. Swapna, a nursing staff, accompanied during the encounter. Allergies Allergy/AdvReac Type Severity Reaction Status Date / Time No Known Allergies Allergy Verified 03/15/25 12:56 Home Medications Medication Instructions Recorded Confirmed Type metformin 1,000 mg tablet 1,000 mg PO BIDM 03/15/25 03/15/25 History Patient History Family History Other Diabetes Social History (Updated 03/15/25 @ 09:33 by SUKI Shipman) Smoking Status: Never smoker Second Hand Exposure: No; Do You Dip or Chew Tobacco: No; Tobacco Cessation Education Requested by Patient: No Hx Alcohol Use: Yes Alcohol type: beer Alcohol Intake Frequency: 4 or More x per/Week Hx Substance Use: No Preferred Language: Slovak Communication Ability: Effective Agriculture Teacher Required: No Beliefs That Will Affect Care: None Current Living Situation: Alone Current Living Situation Comment: From [facility] but renting house in [place] while carolann here Other Information That Helps Us Care for You: No Feels Safe at Home: Yes and No Is there a partner from a previous relationship who is making you feel unsafe now?: No Any Concerns about Your Family Situation: No Would You Like to Speak to Someone About Your Situation: No Safety Concerns: Feels Safe At This Time Assistive Devices: None Review of Systems as HPI and all others negative Physical Exam Gen: no acute distress Lungs: breathing comfortably on room air Ext: post op dressing on R foot; no erythema in R leg Neuro: alert, awake, oriented to time, place and person Results & Data Vital Signs (Past 12 Hours) Vital Signs Temp Pulse Pulse Resp BP Pulse Ox O2 Del Method 03/16/25 07:31 36.8 C 78 18 149/83 H 98 Room Air 03/16/25 07:22 86 03/16/25 03:16 36.6 C 73 20 145/88 H 99 Room Air 03/15/25 23:59 37.3 C 85 20 149/92 H 98 Room Air Laboratory Results WBC 17K -> 11K H 13.3 Plt 442K Cr 0.51 LFT unremarkable MRSA screen (03/15): negative Micro wound cx (03/15): result pending Blood cx (03/15): NGTD Diagnostic Findings XR foot (03/15): 1. Soft tissue swelling surrounding the third digit around the proximal and middle phalanx with intervening small foci of air possibility of infectious process with gas forming organism/ necrotizing fasciitis should be considered. 2. Underlying third middle phalanx lucence and thinning of the lateral cortex thinning seen with suspected small focus fo cortical isruption,raising possibility of intraosseous spread of infection, clinical correlation and if needed MRI advised 3. Terminal phalanx of third digit not seen, correlate with surgical history Foot MRI (03/15): 1. Right third toe wound with associated cellulitis and soft tissue gas which extends to the level of the base of the right third proximal phalanx. 2. Nonvisualization of the right third distal phalanx. In the absence of prior amputation, this is suggestive of bony destruction due to osteomyelitis. 3. Mild marrow edema within the right third distal phalanx and the mid to distal aspect of the right third proximal phalanx. The findings suggest osteitis. Although less likely, early developing osteomyelitis could appear similar. No additional sites of marrow edema within the right forefoot. Medications Administered Zosyn 03/15- Vancomycin iv 03/15- Clindamycin iv 03/15-
[2025-03-16] MEDS ORDERED: VANCOMYCIN HCL 1,250 MG in SODIUM CHLORIDE 0.9% 250 ML IV SCH (11:00)
--- NOTE | 2025-03-16 11:00 | Pharmacy Report ---
Pharmacy PK ABX Note - Date of Service March 16, 2025 - Assessment and Plan Assessment 03/16: Reviewed vancomycin level, predicting subtherapeutic AUC/NATALIE, increase dose with current regimen. 03/15: 54 year old M receiving vancomycin/clindamycin/Zosyn for treatment of diabetic foot infection r/o necrotizing fasciitis and osteomyelitis. Went to OR today for right foot I&D. Pertinent microbiologic data includes: blood cultures pending, 3rd right toe surface cultures pending, right foot OR cultures pending. Day # 2 of antimicrobial therapy. Plan Vancomycin * Loading dose: 1500 mg IV x 1 * Maintenance dose: 1500 mg IV every 8 hours * Regimen is predicted to achieve target AUC/NATALIE of 400-600 mg/L.hr * Trough level ordered for: 03/17/25 @1030 Pharmacy will continue to follow and will adjust dose/frequency as necessary. Thank you. Pharmacy has transitioned to AUC monitoring for vancomycin. AUC/NATALIE is the preferred PK/PD target and is associated with decreased risk of nephrotoxicity compared to traditional trough targets.
[2025-03-16] MEDS: VANCOMYCIN HCL 1,500 MG in SODIUM CHLORIDE 0.9% 500 ML IV SCH (13:11)
--- NOTE | 2025-03-16 14:18 | Hospitalist Progress Note ---
Date of Service March 16, 2025 Assessment & Plan (1) Sepsis: (2) Diabetic ulcer of toe of right foot: (3) Cellulitis of right foot: (4) Type 2 diabetes mellitus: Plan In summary, 54 year old male with PMH significant for type 2 diabetes who was admitted with an infected right third toe and is admitted for sepsis secondary to this. Sepsis Meets criteria on admission with leukocytosis 17K and tachycardia 90-115s Lactate and procalcitonin WNL Secondary to diabetic ulcer of right third toe as below Blood cultures NTD Wound culture pending, nasal MRSA negative ID consult Continue IV Zosyn per ID pending final surgical culture results Diabetic ulcer of right third toe Cellulitis of right foot Stable POD #1 partial ray resection 3rd digit right foot Analgesia for pain control Continue zosyn per ID Type 2 diabetes Very poor control A1C 12.6 BSG ACHS and SSI Basal insulin Glycemic pharmacy consult CM consult DVT Prophylaxis: SCDs for now Code Status: FULL CODE - As per discussion at bedside with the patient. PCP: None I spent a total of 50 minutes coordinating, documenting and providing care for this patient. Admission and Anticipated Discharge Date Admission Date: March 15, 2025 Subjective Chart and data reviewed. VSS. 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 Pt POD #1 I&D of the right foot with partial/ distal ray resection of the 3rd metatarsal head. He has some pain at the surgical site. DM is uncontrolled with Hgb A1C > 12. Only on metformin. ID recs noted and appreciated. Continue IV Zosyn for now. Review of Systems Review of Systems: Constitutional- no fever; no chills Eyes- no acute visual changes Cardiac- no chest pain, no palpitations, no orthopnea, no dependent edema GI- no nausea, no vomiting, no diarrhea, no melena, no hematochezia - no dysuria, no hematuria Physical Exam Physical Exam: General- adult male seen at bedside Head- atraumatic Eyes- PERRL, EOMI, anicteric ENT- oropharynx clear Neck- supple, no JVD, no adenopathy, no thyromegaly; carotids +2/2, no bruits appreciated Lungs- clear to auscultation and percussion Heart- regular rhythm; no murmur, no gallop, no rub appreciated Abdomen- normal bowel sounds, soft, nontender, no masses or hepatosplenomegaly Extremities- no pretibial edema, no calf tenderness; dressing intact right foot Neuro- alert, oriented x 3; PERRL, EOMI; no gross focal deficits Skin- warm & dry Results & Data Results & Data Vital Signs (Past 12 Hours) Vital Signs Temp Pulse Pulse Resp BP Pulse Ox O2 Del Method 03/16/25 11:20 37.4 C 85 18 142/84 H 98 Room Air 03/16/25 07:31 36.8 C 78 18 149/83 H 98 Room Air 03/16/25 07:22 86 03/16/25 03:16 36.6 C 73 20 145/88 H 99 Room Air Medications Administered Laboratory Results WBC 10.94 K/ul (4.8-10.8) H 03/16/25 05:26 RBC 4.23 M/uL (4.70-6.10) L 03/16/25 05:26 Hgb 13.3 g/dl (14.0-18.0) L 03/16/25 05:26 Hct 37.6 % (42.0-52.0) L 03/16/25 05:26 MCV 88.9 fL (80.0-100.0) 03/16/25 05:26 MCH 31.4 pg (25.0-34.0) 03/16/25 05:26 MCHC 35.4 g/dL (32.0-36.0) 03/16/25 05:26 RDW Std Deviation 37.5 fL (36.4-46.3) 03/16/25 05:26 RDW Coeff of Radha 11.8 % (11.5-14.5) 03/16/25 05:26 Plt Count 442 K/uL (130-400) H 03/16/25 05:26 MPV 9.5 fL (9.4-12.4) 03/16/25 05:26 Immature Gran % (Auto) 0.4 % 03/16/25 05:26 Neut % (Auto) 70.6 % 03/16/25 05:26 Lymph % (Auto) 14.8 % 03/16/25 05:26 Sumner % (Auto) 12.4 % 03/16/25 05:26 Eos % (Auto) 1.3 % 03/16/25 05:26 Baso % (Auto) 0.5 % 03/16/25 05:26 Neut # (Auto) 7.72 K/uL (1.40-6.50) H 03/16/25 05:26 Lymph # (Auto) 1.62 K/uL (1.20-3.40) 03/16/25 05:26 Sumner # (Auto) 1.36 K/uL (0.11-0.59) H 03/16/25 05:26 Eos # (Auto) 0.14 K/uL (0.00-0.50) 03/16/25 05:26 Baso # (Auto) 0.06 K/uL (0.00-0.20) 03/16/25 05:26 Immature Gran # (Auto) 0.04 K/uL (0.01-0.20) 03/16/25 05:26 PT 11.0 Seconds (9.0-12.0) 03/15/25 07:14 INR 1.0 (0.9-1.1) 03/15/25 07:14 APTT 31 Seconds (21-31) 03/15/25 07:14 PTT Ratio 1.2 03/15/25 07:14 Sodium 137 mmol/L (136-145) 03/16/25 05:26 Potassium 3.8 mmol/L (3.5-5.1) 03/16/25 05:26 Chloride 101 mmol/L (98-107) 03/16/25 05:26 Carbon Dioxide 29 mmol/L (21-32) 03/16/25 05:26 Anion Gap 7 (3-11) 03/16/25 05:26 BUN 8 mg/dl (6-23) 03/16/25 05:26 Creatinine 0.51 mg/dl (0.6-1.4) L 03/16/25 05:26 Est Cr Clr Drug Dosing 180.5 ml/min 03/16/25 05:26 eGFR 121.99 03/16/25 05:26 BUN/Creatinine Ratio 15.7 (10-20) 03/16/25 05:26 Glucose 165 mg/dl (70-99(Fasting)) H 03/16/25 05:26 POC Glucose 175 mg/dl (70-99) H 03/16/25 11:38 Estimat Average Glucose 315 mg/dl 03/15/25 07:14 Hemoglobin A1c 12.6 % (4.5-5.6) H 03/15/25 07:14 Lactate 1.8 mmol/L (0.4-2.0) 03/15/25 07:14 Calcium 7.9 mg/dl (8.6-10.3) L 03/16/25 05:26 Total Bilirubin 1.0 mg/dl (0.2-1.0) 03/15/25 07:14 AST 16 U/L (13-39) 03/15/25 07:14 ALT 18 U/L (7-52) 03/15/25 07:14 Alkaline Phosphatase 104 U/L (34-104) 03/15/25 07:14 Total Protein 8.7 gm/dl (6.0-8.3) H 03/15/25 07:14 Albumin 4.1 gm/dl (3.4-5.0) 03/15/25 07:14 Globulin 4.6 gm/dl (2.5-4.0) H 03/15/25 07:14 Albumin/Globulin Ratio 0.9 (0.9-2) 03/15/25 07:14 Procalcitonin 0.56 ng/ml (0-0.5) H 03/15/25 07:14 Nasal Screen MRSA (PCR) Negative (Negative) 03/15/25 07:34 Random Vancomycin 7.4 mcg/ml (10-20) L 03/16/25 09:45 Impressions Foot X-Ray 03/15/25 07:06 EXAM: XR foot RT min 3V routine CLINICAL HISTORY: R 3rd toe discolored, foot edema, erythema TECHNIQUE: X-ray images of the right foot were obtained in anteroposterior (AP), lateral, and oblique projections. COMPARISON: No prior studies available for comparison. FINDINGS: Soft tissue swelling surrounding the third digit around the proximal and middle phalanx with intervening small foci of air possibility of infectious process with gas forming organism/ necrotizing fasciitis should be considered. Suggest clinical correlation. Underlying third middle phalanx lucence and thinning of the lateral cortex thinning seen with suspected small focus fo cortical isruption,raising possibility of intraosseous spread of infection, clinical correlation and if needed MRI advised Bone Structure: Terminal phalanx of third digit not seen, correlate with surgical history Joint Spaces: Joint spaces are normal. No evidence of joint effusion or subluxation. Additional Findings: No signs of osteoarthritis, bone spurs, lytic or sclerotic lesions. IMPRESSION: 1. Soft tissue swelling surrounding the third digit around the proximal and middle phalanx with intervening small foci of air possibility of infectious process with gas forming organism/ necrotizing fasciitis should be considered. Suggest clinical correlation. 2. Underlying third middle phalanx lucence and thinning of the lateral cortex thinning seen with suspected small focus fo cortical isruption,raising possibility of intraosseous spread of infection, clinical correlation and if needed MRI advised 3. Terminal phalanx of third digit not seen, correlate with surgical history Disclaimer: A subtle bone abnormality or fracture may not be readily apparent on X-rays, thus clinical correlation and further imaging including follow-up CT, MRI, or follow-up X-rays are advised as needed. Electronically signed by Lobito Terry 03-15-2025 08:53 AM Foot MRI 03/15/25 08:59 MRI OF THE RIGHT FOOT WITHOUT CONTRAST CLINICAL HISTORY: Right foot infection. COMPARISON STUDY: Right foot radiographs performed earlier today. TECHNIQUE: Utilizing a 3 Kenia magnet and dedicated coil, multiplanar, multiecho imaging of the right forefoot was performed without intravenous contrast. FINDINGS: Tarsometatarsal joints are intact. Lisfranc ligament is intact. 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 Moderate subcutaneous edema of the right midfoot and forefoot is present. There is also a wound of the right third toe with associated subcutaneous edema consistent with cellulitis. T1 and T2 hypointense signal corresponds to gas shown on radiographs. The gas extends the level of the base of the right third proximal phalanx. No fluid collection to suggest abscess is identified on unenhanced examination. There are no fractures within the right forefoot. Of note, there is nonvisualization of the right third distal phalanx, as shown on radiographs. The distal aspect of the third middle phalanx extends to the wound. There is mild increased T2 signal within the right third middle phalanx and the mid to distal aspect of the right third proximal phalanx. T1 marrow signal within these bones is only slightly diminished. No additional sites of marrow edema within the right forefoot are present. IMPRESSION: 1. Right third toe wound with associated cellulitis and soft tissue gas which extends to the level of the base of the right third proximal phalanx. This gas could be due to the open wound or a gas-forming infectious process. 2. Nonvisualization of the right third distal phalanx. In the absence of prior amputation, this is suggestive of bony destruction due to osteomyelitis. 3. Mild marrow edema within the right third distal phalanx and the mid to distal aspect of the right third proximal phalanx. The findings suggest osteitis. Although less likely, early developing osteomyelitis could appear similar. No additional sites of marrow edema within the right forefoot. ACT 112: Negative or not required by law. Electronically signed by: Gopal Hinojosa M.D. 03/15/2025 11:40 AM Duplex Scan Lower Extremity Artery 03/15/25 09:09 US arterial duplex LE RT HISTORY: 54 years-old Male diabetic toe wound COMPARISON: None TECHNIQUE: Multiple real-time sonographic images of the right lower extremity arterial structures were obtained assessing grayscale appearance, color and spectral flow FINDINGS: Triphasic waveforms are noted involving the majority of the right lower extremity arteries. Elevated peak systolic velocities within a segment of the dorsalis pedis artery are noted measuring up to 303 cm/s. No arterial occlusion. Subcutaneous edema of the lower leg and ankle. Physiologic-appearing inguinal chain lymph nodes are present. IMPRESSION: 1. Triphasic waveforms are noted throughout without evidence of arterial occlusion. 2. Elevated peak systolic velocities in the dorsalis pedis artery may be secondary to vessel tortuosity versus stenosis. ACT 112: Negative or not required by law. The above report was generated using voice recognition software. It may contain grammatical, syntax or spelling errors. Electronically signed by: Julio C Ribera M.D. 03/15/2025 10:47 AM Venous Doppler Study 03/15/25 09:09 RIGHT LOWER EXTREMITY VENOUS DOPPLER CLINICAL HISTORY: Unilateral calf tenderness. COMPARISON STUDY: No previous studies for comparison. TECHNIQUE: Sonography of the deep venous system of the right lower extremity was performed. Compression and augmentation were evaluated. FINDINGS: The right common femoral, superficial femoral and popliteal veins were compressible. Augmentation was normal. Flow was shown within the deep calf vessels. IMPRESSION: No evidence of deep venous thrombus within the right lower extremity. ACT 112: Negative or not required by law. Electronically signed by: Gopal Hinojosa M.D. 03/15/2025 10:28 AM
--- NOTE | 2025-03-16 15:19 | Podiatry Progress Note ---
Date of Service March 16, 2025 Assessment & Plan (1) Sepsis: (2) Diabetic ulcer of toe of right foot: (3) Cellulitis of right foot: (4) Type 2 diabetes mellitus: Plan Patient was examined and evaluated. His Jason bandage was removed and replaced. We will plan on changing his dressing in the next day or 2, prior to discharge. He is still pending the results of pathology, which will help guide further treatment, specifically regarding the type or route of antibiotics moving forward. We will continue to keep an eye on him for now. Admission and Anticipated Discharge Date Admission Date: March 15, 2025 Subjective Patient seen at bedside today, one day status post right third partial ray resection. He is doing well without any new infection concerns. His appetite is intact and he is resting comfortably without pain. Physical Exam Physical Exam: Right foot surgical dressing is intact with no bleeding or drainage noted to the dressing. The Jason bandage was taken down and there is some bleeding to the outer layer of the Kerlix. No pain on palpation of the foot is noted. No ascending cellulitis or new malodor is appreciated. Constitutional: WD/WN, vitals as above well developed Eyes: PERRL, conjunctivae normal, anicteric sclerae ENMT: external ear and nose normal, oropharynx normal Neck: trachea midline, no thyromegaly Respiratory: normal respiratory effort, lungs clear to auscultation Cardiovascular: RRR, no murmur, no edema Vessels: posterior tibial pulses present (left, right posterior tibial pulses diminished) and dorsalis pedis pulses present Gastrointestinal (Abdomen): normal bowel sounds, soft, nontender, no hepatosplenomegaly Skin: + ulcer, + wound and + erythema Right 3rd toe ulcer with skin necrosis. probes to bone. Neurologic: PERRL, EOMI, accommodation nl, no face palsy, no dysarthria Motor/Sensory: + sensory deficit Psychiatric: A+Ox3, euthymic affect Orientation: alert and oriented x 3 Lymphatic: no cervical or axillary lymphadenopathy Results & Data Results & Data Vital Signs (Past 12 Hours) Vital Signs Temp Pulse Pulse Resp BP Pulse Ox O2 Del Method 03/16/25 15:03 36.8 C 76 18 149/91 H 96 Room Air 03/16/25 14:59 88 03/16/25 11:20 37.4 C 85 18 142/84 H 98 Room Air 03/16/25 07:31 36.8 C 78 18 149/83 H 98 Room Air 03/16/25 07:22 86 (2) Diabetic ulcer of toe of right foot Diabetes mellitus type: type 2 Non-pressure ulcer stage: with necrosis of bone Qualified Code(s): E11.621 - Type 2 diabetes mellitus with foot ulcer; L97.514 - Non-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
[2025-03-17 06:54] LABS: Hematocrit (blood only) 37.8 % (42.0-52.0); Hemoglobin 13.0 g/dl (14.0-18.0); Mean Corpuscular Hemoglobin 30.3 pg (25.0-34.0); Mean Corpuscular Volume 88.1 fL (80.0-100.0); Platelet Count 458 K/uL (130-400); RDW Standard Deviation 39.0 fL (36.4-46.3); Red Blood Count 4.29 M/uL (4.70-6.10); White Blood Count 7.63 K/ul (4.8-10.8)
[2025-03-17 07:15] LABS: Anion Gap 7.0 (3-11); Blood Urea Nitrogen 8.0 mg/dl (6-23); Calcium 8.3 mg/dl (8.6-10.3); Carbon Dioxide 27.0 mmol/L (21-32); Chloride 103.0 mmol/L (98-107); Creatinine Clr Calc Pharmacy 230.1 ml/min; Glucose 177.0 mg/dl (70-99(Fasting)); Potassium 3.5 mmol/L (3.5-5.1); Sodium 137.0 mmol/L (136-145)
[2025-03-17] MEDS ORDERED: VANCOMYCIN LEVEL ONE (10:30)
--- NOTE | 2025-03-17 11:43 | Hospitalist Progress Note ---
Date of Service March 17, 2025 Assessment & Plan (1) Sepsis: (2) Diabetic ulcer of toe of right foot: (3) Cellulitis of right foot: (4) Type 2 diabetes mellitus: Plan In summary, 54 year old male with PMH significant for type 2 diabetes who was admitted with an infected right third toe and is admitted for sepsis secondary to this. Sepsis Meets criteria on admission with leukocytosis 17K and tachycardia 90-115s Lactate and procalcitonin WNL Secondary to diabetic ulcer of right third toe as below Blood cultures NTD Wound culture pending, nasal MRSA negative ID consult Continue IV Zosyn per ID pending final surgical culture results Per ID:Continue zosyn at current dose, F/u OR cultures, Anticipate 2 weeks of abx therapy: anticipate to transition to oral abx if susceptibility allows such tra Diabetic ulcer of right third toe Cellulitis of right foot Stable POD #1 partial ray resection 3rd digit right foot Analgesia for pain control Continue zosyn per ID Type 2 diabetes Very poor control A1C 12.6 BSG ACHS and SSI Basal insulin Glycemic pharmacy consult CM consult DVT Prophylaxis: SCDs for now Code Status: FULL CODE - As per discussion at bedside with the patient. PCP: None Admission and Anticipated Discharge Date Admission Date: March 15, 2025 Subjective Chart and data reviewed. Vital signs are stable. Patient seen by distributor advertising material. Patient seen at bedside today, POD#2 status post right third partial ray resection. . His appetite is intact and he is resting comfortably without pain. Review of Systems Review of Systems: Constitutional- no fever; no chills Eyes- no acute visual changes Cardiac- no chest pain, no palpitations, no orthopnea, no dependent edema GI- no nausea, no vomiting, no diarrhea, no melena, no hematochezia - no dysuria, no hematuria Physical Exam Physical Exam: General- adult male seen at bedside Head- atraumatic Eyes- PERRL, EOMI, anicteric ENT- oropharynx clear Neck- supple, no JVD, no adenopathy, no thyromegaly; carotids +2/2, no bruits appreciated Lungs- clear to auscultation and percussion Heart- regular rhythm; no murmur, no gallop, no rub appreciated Abdomen- normal bowel sounds, soft, nontender, no masses or hepatosplenomegaly Extremities- no pretibial edema, no calf tenderness; dressing intact right foot Neuro- alert, oriented x 3; PERRL, EOMI; no gross focal deficits Skin- warm & dry Results & Data Results & Data Vital Signs (Past 12 Hours) Vital Signs Temp Pulse Pulse Resp BP BP Pulse Ox 03/17/25 11:04 36.7 C 90 21 131/81 97 03/17/25 07:18 36.7 C 77 23 156/91 H 98 03/17/25 07:06 73 03/17/25 02:45 36.6 C 75 14 148/84 H 99 O2 Del Method 03/17/25 11:04 Room Air 03/17/25 07:18 Room Air 03/17/25 07:06 03/17/25 02:45 Room Air Laboratory Results Laboratory Results WBC 7.63 K/ul (4.8-10.8) 03/17/25 05:54 RBC 4.29 M/uL (4.70-6.10) L 03/17/25 05:54 Hgb 13.0 g/dl (14.0-18.0) L 03/17/25 05:54 Hct 37.8 % (42.0-52.0) L 03/17/25 05:54 MCV 88.1 fL (80.0-100.0) 03/17/25 05:54 MCH 30.3 pg (25.0-34.0) 03/17/25 05:54 MCHC 34.4 g/dL (32.0-36.0) 03/17/25 05:54 RDW Std Deviation 39.0 fL (36.4-46.3) 03/17/25 05:54 RDW Coeff of Radha 12.0 % (11.5-14.5) 03/17/25 05:54 Plt Count 458 K/uL (130-400) H 03/17/25 05:54 MPV 9.2 fL (9.4-12.4) L 03/17/25 05:54 Immature Gran % (Auto) 0.4 % 03/16/25 05:26 Neut % (Auto) 70.6 % 03/16/25 05:26 Lymph % (Auto) 14.8 % 03/16/25 05:26 [place] % (Auto) 12.4 % 03/16/25 05:26 Eos % (Auto) 1.3 % 03/16/25 05:26 Baso % (Auto) 0.5 % 03/16/25 05:26 Neut # (Auto) 7.72 K/uL (1.40-6.50) H 03/16/25 05:26 Lymph # (Auto) 1.62 K/uL (1.20-3.40) 03/16/25 05:26 [place] # (Auto) 1.36 K/uL (0.11-0.59) H 03/16/25 05:26 Eos # (Auto) 0.14 K/uL (0.00-0.50) 03/16/25 05:26 Baso # (Auto) 0.06 K/uL (0.00-0.20) 03/16/25 05:26 Immature Gran # (Auto) 0.04 K/uL (0.01-0.20) 03/16/25 05:26 PT 11.0 Seconds (9.0-12.0) 03/15/25 07:14 INR 1.0 (0.9-1.1) 03/15/25 07:14 APTT 31 Seconds (21-31) 03/15/25 07:14 PTT Ratio 1.2 03/15/25 07:14 Sodium 137 mmol/L (136-145) 03/17/25 05:54 Potassium 3.5 mmol/L (3.5-5.1) 03/17/25 05:54 Chloride 103 mmol/L (98-107) 03/17/25 05:54 Carbon Dioxide 27 mmol/L (21-32) 03/17/25 05:54 Anion Gap 7 (3-11) 03/17/25 05:54 BUN 8 mg/dl (6-23) 03/17/25 05:54 Creatinine 0.40 mg/dl (0.6-1.4) L 03/17/25 05:54 Est Cr Clr Drug Dosing 230.1 ml/min 03/17/25 05:54 eGFR 131.28 03/17/25 05:54 BUN/Creatinine Ratio 20.0 (10-20) 03/17/25 05:54 Glucose 177 mg/dl (70-99(Fasting)) H 03/17/25 05:54 POC Glucose 166 mg/dl (70-99) H 03/17/25 07:50 Estimat Average Glucose 315 mg/dl 03/15/25 07:14 Hemoglobin A1c 12.6 % (4.5-5.6) H 03/15/25 07:14 Lactate 1.8 mmol/L (0.4-2.0) 03/15/25 07:14 Calcium 8.3 mg/dl (8.6-10.3) L 03/17/25 05:54 Total Bilirubin 1.0 mg/dl (0.2-1.0) 03/15/25 07:14 AST 16 U/L (13-39) 03/15/25 07:14 ALT 18 U/L (7-52) 03/15/25 07:14 Alkaline Phosphatase 104 U/L (34-104) 03/15/25 07:14 Total Protein 8.7 gm/dl (6.0-8.3) H 03/15/25 07:14 Albumin 4.1 gm/dl (3.4-5.0) 03/15/25 07:14 Globulin 4.6 gm/dl (2.5-4.0) H 03/15/25 07:14 Albumin/Globulin Ratio 0.9 (0.9-2) 03/15/25 07:14 Procalcitonin 0.56 ng/ml (0-0.5) H 03/15/25 07:14 Nasal Screen MRSA (PCR) Negative (Negative) 03/15/25 07:34 Random Vancomycin 7.4 mcg/ml (10-20) L 03/16/25 09:45 Impressions Foot X-Ray 03/15/25 07:06 EXAM: XR foot RT min 3V routine CLINICAL HISTORY: R 3rd toe discolored, foot edema, erythema TECHNIQUE: X-ray images of the right foot were obtained in anteroposterior (AP), lateral, and oblique projections. COMPARISON: No prior studies available for comparison. FINDINGS: Soft tissue swelling surrounding the third digit around the proximal and middle phalanx with intervening small foci of air possibility of infectious process with gas forming organism/ necrotizing fasciitis should be considered. Suggest clinical correlation. Underlying third middle phalanx lucence and thinning of the lateral cortex thinning seen with suspected small focus fo cortical isruption,raising possibility of intraosseous spread of infection, clinical correlation and if needed MRI advised Bone Structure: Terminal phalanx of third digit not seen, correlate with surgical history Joint Spaces: Joint spaces are normal. No evidence of joint effusion or subluxation. Additional Findings: No signs of osteoarthritis, bone spurs, lytic or sclerotic lesions. IMPRESSION: 1. Soft tissue swelling surrounding the third digit around the proximal and middle phalanx with intervening small foci of air possibility of infectious process with gas forming organism/ necrotizing fasciitis should be considered. Suggest clinical correlation. 2. Underlying third middle phalanx lucence and thinning of the lateral cortex thinning seen with suspected small focus fo cortical isruption,raising possibility of intraosseous spread of infection, clinical correlation and if needed MRI advised 3. Terminal phalanx of third digit not seen, correlate with surgical history Disclaimer: A subtle bone abnormality or fracture may not be readily apparent on X-rays, thus clinical correlation and further imaging including follow-up CT, MRI, or follow-up X-rays are advised as needed. Electronically signed by Lobito Terry 03-15-2025 08:53 AM Foot MRI 03/15/25 08:59 MRI OF THE RIGHT FOOT WITHOUT CONTRAST CLINICAL HISTORY: Right foot infection. COMPARISON STUDY: Right foot radiographs performed earlier today. TECHNIQUE: Utilizing a 3 [place]ia magnet and dedicated coil, multiplanar, multiecho imaging of the right forefoot was performed without intravenous contrast. FINDINGS: Tarsometatarsal joints are intact. Lisfranc ligament is intact. 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 Moderate subcutaneous edema of the right midfoot and forefoot is present. There is also a wound of the right third toe with associated subcutaneous edema consistent with cellulitis. T1 and T2 hypointense signal corresponds to gas shown on radiographs. The gas extends the level of the base of the right third proximal phalanx. No fluid collection to suggest abscess is identified on unenhanced examination. There are no fractures within the right forefoot. Of note, there is nonvisualization of the right third distal phalanx, as shown on radiographs. The distal aspect of the third middle phalanx extends to the wound. There is mild increased T2 signal within the right third middle phalanx and the mid to distal aspect of the right third proximal phalanx. T1 marrow signal within these bones is only slightly diminished. No additional sites of marrow edema within the right forefoot are present. IMPRESSION: 1. Right third toe wound with associated cellulitis and soft tissue gas which extends to the level of the base of the right third proximal phalanx. This gas could be due to the open wound or a gas-forming infectious process. 2. Nonvisualization of the right third distal phalanx. In the absence of prior amputation, this is suggestive of bony destruction due to osteomyelitis. 3. Mild marrow edema within the right third distal phalanx and the mid to distal aspect of the right third proximal phalanx. The findings suggest osteitis. Although less likely, early developing osteomyelitis could appear similar. No additional sites of marrow edema within the right forefoot. ACT 112: Negative or not required by law. Electronically signed by: Gopal Hinojosa M.D. 03/15/2025 11:40 AM Duplex Scan Lower Extremity Artery 03/15/25 09:09 US arterial duplex LE RT HISTORY: 54 years-old Male diabetic toe wound COMPARISON: None TECHNIQUE: Multiple real-time sonographic images of the right lower extremity arterial structures were obtained assessing grayscale appearance, color and spectral flow FINDINGS: Triphasic waveforms are noted involving the majority of the right lower extremity arteries. Elevated peak systolic velocities within a segment of the dorsalis pedis artery are noted measuring up to 303 cm/s. No arterial occlusion. Subcutaneous edema of the lower leg and ankle. Physiologic-appearing inguinal chain lymph nodes are present. IMPRESSION: 1. Triphasic waveforms are noted throughout without evidence of arterial occlusion. 2. Elevated peak systolic velocities in the dorsalis pedis artery may be secondary to vessel tortuosity versus stenosis. ACT 112: Negative or not required by law. The above report was generated using voice recognition software. It may contain grammatical, syntax or spelling errors. Electronically signed by: Julio C Ribera M.D. 03/15/2025 10:47 AM Venous Doppler Study 03/15/25 09:09 RIGHT LOWER EXTREMITY VENOUS DOPPLER CLINICAL HISTORY: Unilateral calf tenderness. COMPARISON STUDY: No previous studies for comparison. TECHNIQUE: Sonography of the deep venous system of the right lower extremity was performed. Compression and augmentation were evaluated. FINDINGS: The right common femoral, superficial femoral and popliteal veins were compressible. Augmentation was normal. Flow was shown within the deep calf vessels. IMPRESSION: No evidence of deep venous thrombus within the right lower extremity. ACT 112: Negative or not required by law. Electronically signed by: Gopal Hinojosa M.D. 03/15/2025 10:28 AM (2) Diabetic ulcer of toe of right foot Diabetes mellitus type: type 2 Non-pressure ulcer stage: with necrosis of bone Qualified Code(s): E11.621 - Type 2 diabetes mellitus with foot ulcer; L97.514 - Non-pressure chronic ulcer of other part of right foot with necrosis of bone (4) Type 2 diabetes mellitus Diabetes mellitus buttermaker insulin use: without buttermaker use Diabetes mellitus complication status: with neurologic complications Diabetes mellitus complication detail: with polyneuropathy Qualified Code(s): E11.42 - Type 2 diabetes mellitus with diabetic polyneuropathy
--- NOTE | 2025-03-17 14:22 | Infectious Disease Progress Nt ---
Date of Service March 17, 2025 Telehealth Information Non-billable note Assessment & Plan (1) Cellulitis of right foot: Plan: OR cultures from 03/15 showed Streptococcus spp and Peptostreptococcus but no GNRs or S aureus. I recommend to switch iv abx to augmentin 875 mg po bid to complete rest of abx therapy: total 14 days from 03/15 to 03/28/25. I also recommend probiotic while on abx therapy. Results & Data Vital Signs (Past 12 Hours) Vital Signs Temp Pulse Pulse Resp BP BP Pulse Ox 03/17/25 11:04 36.7 C 90 21 131/81 97 03/17/25 07:18 36.7 C 77 23 156/91 H 98 03/17/25 07:06 73 03/17/25 02:45 36.6 C 75 14 148/84 H 99 O2 Del Method 03/17/25 11:04 Room Air 03/17/25 07:18 Room Air 03/17/25 07:06 03/17/25 02:45 Room Air
[2025-03-17] MEDS: AMOXICILLIN/CLAVULANATE 875 MG TAB PO SCH (18:31)
[2025-03-18 07:16] LABS: Hematocrit (blood only) 39.7 % (42.0-52.0); Hemoglobin 14.0 g/dl (14.0-18.0); Mean Corpuscular Hemoglobin 31.5 pg (25.0-34.0); Mean Corpuscular Volume 89.2 fL (80.0-100.0); Platelet Count 501 K/uL (130-400); RDW Standard Deviation 39.3 fL (36.4-46.3); Red Blood Count 4.45 M/uL (4.70-6.10); White Blood Count 8.30 K/ul (4.8-10.8)
[2025-03-18 07:32] LABS: Anion Gap 7.0 (3-11); Blood Urea Nitrogen 9.0 mg/dl (6-23); Calcium 8.8 mg/dl (8.6-10.3); Carbon Dioxide 28.0 mmol/L (21-32); Chloride 101.0 mmol/L (98-107); Creatinine Clr Calc Pharmacy 167.3 ml/min; Glucose 181.0 mg/dl (70-99(Fasting)); Potassium 3.7 mmol/L (3.5-5.1); Sodium 136.0 mmol/L (136-145)
[2025-03-18 07:42] VITALS: TEMP 98.1
[2025-03-18] MEDS: ADVANCED PROBIOTIC 625 MG CAPSULE PO SCH (08:19)
[2025-03-18 11:39] VITALS: BP 139/90; PULSE 88; RESP 18; O2SAT 98
--- NOTE | 2025-03-18 12:11 | Discharge Summary ---
Discharge Summary Date of Service March 18, 2025 Principal Dx & Hospital Course #1 = Principal Diagnosis (1) Sepsis: (2) Diabetic ulcer of toe of right foot: (3) Cellulitis of right foot: (4) Type 2 diabetes mellitus: Notes For Next Care Provider Medication Changes From Visit Lisinopril 5 mg daily added for high blood pressure Start Lantus 20 units once a day for better sugar coverage Take Augmentin antibiotic 875 mg twice a day until 03/28/2025. Admission HPI Per Admitting Provider 54 year old male with PMH significant for type 2 diabetes who presented to the ED on 03/15/2025 with an infected right third toe. 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 He reports he noticed the wound and infection on his toe about three days ago. He was trying to wait until he goes back to [place] in two weeks to see a doctor for it. However, he noticed swelling and redness on the top of his foot as well as swelling and tenderness in his right calf and felt as though he needed to come to the ED instead of waiting. He reports he was diagnosed with diabetes two years ago and has been taking metformin for it. He has not been to the doctors in awhile because he travels all over the country for work. Has never seen a foot doctor. He denies pain in the toe/foot, fevers, chills, chest pain, SOB, abdominal pain, N/V/D. He has been covering his toe with toilet paper before putting on a sock and working boots. Discharge Exam General- adult male seen at bedside Head- atraumatic Eyes- PERRL, EOMI, anicteric ENT- oropharynx clear Neck- supple, no JVD, no adenopathy, no thyromegaly; carotids +2/2, no bruits a ppreciated Lungs- clear to auscultation and percussion Heart- regular rhythm; no murmur, no gallop, no rub appreciated Abdomen- normal bowel sounds, soft, nontender, no masses or hepatosplenomegaly Extremities- no pretibial edema, no calf tenderness; dressing intact right foot Neuro- alert, oriented x 3; PERRL, EOMI; no gross focal deficits Skin- warm & dry Updated Medication List Medication Instructions Recorded Confirmed Type metformin 1,000 mg tablet 1,000 mg PO BIDM 03/15/25 03/15/25 History amoxicillin 875 mg-potassium 1 tab PO BIDM #10 tabs 03/18/25 Rx clavulanate 125 mg tablet insulin glargine 100 unit/mL (3 20 unit (0.2 mL) subcut QAM #3 mL 03/18/25 Rx mL) subcutaneous pen (Basaglar KwikPen U-100 Insulin) lisinopril 5 mg tablet 5 mg PO QAM #30 tabs 03/18/25 Rx Additional Medication Comments See list Hospital Stay Data Consultations 03/15/25 07:53 ED Decision to Admit Stat 03/15/25 09:09 Consult Podiatry Routine 03/16/25 08:00 Consult Infectious Diseases Routine Procedures Performed Operation Date: 03/15/25 07:00 Actual Procedures p Right Foot Incision and Drainage(Right) - Maryann Weaver DPM Diagnostic Imagining Performed 03/15/25 08:59 MR foot RT w/o con Stat 03/15/25 09:09 US arterial duplex LE RT Urgent US venous doppler LE RT Urgent Pending Results Patient Have Any Pending Studies at Discharge: No Discharge Instructions Given to Patient (Per Discharging Provider) The diabetic nurse educator will be following up with you Follow-up with your primary care provider when you return to [place] immediately Total Time Total Time Spent Total Time Spent (In Minutes): 45 minutes Course Course HOSPITAL COURSE: 54 year old male with PMH significant for type 2 diabetes who was admitted with an infected right third toe and is admitted for sepsis. Patient was admitted to medical surgical unit. He was placed on broad-spectrum antibiotics for sepsis and suspect osteomyelitis. Meets criteria on admission with leukocytosis 17K and tachycardia 90-115s. Lactate and procalcitonin WNL. BC were negative. Podiatry was consulted. He had a successful partial ray resection 3rd digit right foot. Glycemic pharmacy consult was obtained. His metformin was held. He will restart that at discharge. He was placed on Lantus and sliding scale insulin. He will be discharged on Lantus. Infectious disease was consulted. After culture results were back he was placed on Augmentin and should take that until 03/28/2025. His BPs were running high. He was started on lisinopril 5 mg daily. Case management was consulted. DVT Prophylaxis with SCDs. He had early ambulation. At the time of discharge his vital signs were stable. He was afebrile. He was tolerating a carb counting diet. He was ambulating. Close follow-up will be needed. Patient expresses understanding. Administered Medications Acetaminophen (Acetaminophen 325 Mg Tab) 650 mg PO Q4H PRN PRN Reason: pain/fever Stop: 04/14/25 11:49 Last Admin: 03/16/25 20:29 Dose: 650 mg Documented By: Admin: 03/16/25 05:52 Dose: 650 mg Documented By: Admin: 03/15/25 20:29 Dose: 650 mg Documented By: BEVERLEY Amoxicillin/Clavulanate Potassium (Amoxicillin/Clavulanate 875 Mg Tab) 1 tab PO BIDM [facility]; Protocol Stop: 03/24/25 16:59 Last Admin: 03/18/25 08:19 Dose: 1 tab Documented By: Admin: 03/17/25 18:31 Dose: 1 tab Documented By: KAREEN Insulin Aspart (Insulin Aspart Per Unit Charge) 0 units SC [facility] Stop: 04/14/25 11:49 Last Admin: 03/18/25 08:26 Dose: 8 units Documented By: YU Co-signed By: EDIN Admin: 03/17/25 20:34 Dose: Not Given Documented By: [id number] Co-signed By: fernanda Admin: 03/17/25 18:31 Dose: 7 units Documented By: KAREEN Co-signed By: EDIN Admin: 03/17/25 13:54 Dose: 9 units Documented By: KAREEN Co-signed By: THEODORE Admin: 03/17/25 09:49 Dose: 9 units Documented By: KAREEN Co-signed By: OSWALD Admin: 03/16/25 21:17 Dose: 2 units Documented By: KENN Co-signed By: MANDY Admin: 03/16/25 18:18 Dose: 6 units Documented By: KAREEN Co-signed By: THEODORE Admin: 03/16/25 13:11 Dose: 9 units Documented By: KAREEN Co-signed By: ASA Admin: 03/16/25 09:23 Dose: 7 units Documented By: KAREEN Co-signed By: THEODORE Admin: 03/15/25 21:36 Dose: 4 units Documented By: BEVERLEY Co-signed By: LACEY Admin: 03/15/25 18:09 Dose: 6 units Documented By: ESTUARDO Co-signed By: MALLORY Admin: 03/15/25 12:54 Dose: Not Given Documented By: ESTUARDO Insulin Glargine (Lantus Per Unit Charge) 0 units SC BID KEVIN; Protocol Stop: 04/14/25 20:59 Last Admin: 03/18/25 08:27 Dose: 13 units Documented By: YU Co-signed By: EDIN Admin: 03/17/25 20:35 Dose: Not Given Documented By: [id number] Admin: 03/17/25 09:50 Dose: 13 units Documented By: RLRufino Co-signed By: OSWALD Admin: 03/16/25 21:17 Dose: 10 units Documented By: KENN Co-signed By: HM Admin: 03/16/25 09:26 Dose: 10 units Documented By: KAREEN Co-signed By: THEODORE Admin: 03/15/25 21:37 Dose: 20 units Documented By: BEVERLEY Co-signed By: LACEY Lactobacillus Acidophilus (Advanced Probiotic 625 Mg Capsule) 1,250 mg PO DAILY [facility] Stop: 04/17/25 08:59 Last Admin: 03/18/25 08:19 Dose: 1,250 mg Documented By: YU Lisinopril (Lisinopril 5 Mg Tab) 5 mg PO QAM [facility] Stop: 04/17/25 08:59 Last Admin: 03/18/25 09:47 Dose: 5 mg Documented By: YU Discontinued Medications Bupivacaine HCl (Bupivacaine 0.25% Pf 30 Ml Vial) Confirm Administered Dose 30 ml .ROUTE .STK-MED ONE Stop: 03/15/25 12:36 Last Admin: 03/15/25 13:42 Dose: 20 ml Documented By: [id number] Piperacillin Sod/Tazobactam Sod (Zosyn) 4.5 gm in 100 mls @ 200 mls/hr IV NOW ONE; Protocol Stop: 03/15/25 07:37 Last Infusion: 03/15/25 08:04 Dose: Infused Documented By: Admin: 03/15/25 07:34 Dose: 200 mls/hr Documented By: BLAKE Sodium Chloride (Nss) 1,000 mls @ 999 mls/hr IV .Q1H1M ONE Stop: 03/15/25 09:16 Last Infusion: 03/15/25 09:49 Dose: Infused Documented By: Admin: 03/15/25 08:45 Dose: 999 mls/hr Documented By: BLAKE Vancomycin HCl 1,500 mg/ (Sodium Chloride) 530 mls @ 200 mls/hr IV NOW ONE Stop: 03/15/25 11:45 Last Infusion: 03/15/25 14:32 Dose: Infused Documented By: Admin: 03/15/25 11:53 Dose: 200 mls/hr Documented By: ESTUARDO Clindamycin Phosphate (Cleocin/D5w) 900 mg in 50 mls @ 100 mls/hr IV NOW ONE Stop: 03/15/25 09:36 Last Infusion: 03/15/25 12:24 Dose: Infused Documented By: Admin: 03/15/25 11:54 Dose: 100 mls/hr Documented By: ESTUARDO Sodium Chloride (Nss) 1,000 mls @ 80 mls/hr IV .[id number] KEVIN Stop: 03/18/25 09:29 Last Infusion: 03/18/25 10:01 Dose: Infused Documented By: SLBentley Admin: 03/17/25 22:56 Dose: 80 mls/hr Documented By: fernanda Infusion: 03/17/25 22:56 Dose: Infused Documented By: heb Admin: 03/17/25 10:31 Dose: 80 mls/hr Documented By: Infusion: 03/17/25 10:31 Dose: Infused Documented By: Admin: 03/16/25 22:23 Dose: 80 mls/hr Documented By: Infusion: 03/16/25 20:18 Dose: Infused Documented By: Admin: 03/16/25 07:36 Dose: 80 mls/hr Documented By: Infusion: 03/16/25 07:11 Dose: Infused Documented By: Admin: 03/15/25 18:41 Dose: 80 mls/hr Documented By: Infusion: 03/15/25 18:41 Dose: Infused Documented By: Admin: 03/15/25 11:53 Dose: 80 mls/hr Documented By: ESTUARDO Piperacillin Sod/Tazobactam Sod (Zosyn) 4.5 gm in 100 mls @ 25 mls/hr IV Q8H KEVIN; Protocol Stop: 03/22/25 11:59 Last Infusion: 03/17/25 10:56 Dose: Infused Documented By: Admin: 03/17/25 06:13 Dose: 25 mls/hr Documented By: Infusion: 03/17/25 02:23 Dose: Infused Documented By: Admin: 03/16/25 22:23 Dose: 25 mls/hr Documented By: Infusion: 03/16/25 22:14 Dose: Infused Documented By: Admin: 03/16/25 18:18 Dose: 25 mls/hr Documented By: Infusion: 03/16/25 14:57 Dose: Infused Documented By: Admin: 03/16/25 09:23 Dose: 25 mls/hr Documented By: RLRufino Infusion: 03/16/25 03:32 Dose: Infused Documented By: Admin: 03/15/25 23:18 Dose: 25 mls/hr Documented By: Infusion: 03/15/25 19:45 Dose: Infused Documented By: Admin: 03/15/25 15:27 Dose: 25 mls/hr Documented By: ESTUARDO Clindamycin Phosphate (Cleocin/D5w) 900 mg in 50 mls @ 100 mls/hr IV Q8H KEVIN Stop: 03/22/25 17:59 Last Infusion: 03/16/25 11:36 Dose: Infused Documented By: Admin: 03/16/25 10:52 Dose: 100 mls/hr Documented By: RLRufino Infusion: 03/16/25 02:57 Dose: Infused Documented By: Admin: 03/16/25 02:09 Dose: 100 mls/hr Documented By: Infusion: 03/15/25 18:39 Dose: Infused Documented By: Admin: 03/15/25 18:09 Dose: 100 mls/hr Documented By: ESTUARDO Vancomycin HCl (Vancomycin Hcl) 1,000 mg in 270 mls @ 200 mls/hr IV Q8H KEVIN Stop: 03/22/25 19:59 Last Infusion: 03/16/25 05:08 Dose: Infused Documented By: Admin: 03/16/25 03:32 Dose: 200 mls/hr Documented By: Infusion: 03/15/25 22:05 Dose: Infused Documented By: Admin: 03/15/25 20:29 Dose: 200 mls/hr Documented By: BEVERLEY Vancomycin HCl 1,500 mg/ (Sodium Chloride) 530 mls @ 200 mls/hr IV Q8H KEVIN Stop: 03/23/25 10:59 Last Infusion: 03/16/25 16:16 Dose: Infused Documented By: Admin: 03/16/25 13:11 Dose: 200 mls/hr Documented By: KAREEN
== END 2025-03-18 14:16 | disposition home or self-care (01) | DRG 853 ==
LOC: ED 06:53 → SUATTDRO 09:09 → 2N 09:09